=== PATIENT | female | born 1985 | race Caucasian/White ===

== ENCOUNTER 2017-02-06 17:23 | Emergency (ER) | payer MEDICAID ==
--- NOTE | 2017-02-06 18:08 | EDM.PDOC ---
<Florina Watts - Last Filed: 02/06/17 18:55> ED HPI GENERAL MEDICAL PROBLEM - General Chief Complaint: Cardiovascular Problem Stated Complaint: HBP/CHEST PAIN Time Seen by Provider: 02/06/17 17:40 - History of Present Illness INITIAL COMMENTS - FREE TEXT/NARRATIVE: This is Dr. Watts dictating an addendum note as a supervising physician on this case. I personally seen and evaluated this patient independently and agree with above. The patient tells me that she has had episodes similar to this were many years and she just attributed to anxiety. [place] gets several a day which has a flushed feeling she might feel like her heart is racing and she gets discomfort. She has never talked to her provider at [facility] about this. She comes in today only because when she went to donate blood they commented that her heart rate was elevated and her blood pressure was elevated and she thought she should be seen. She has a scheduled appointment with her provider on . On my evaluation I agree with the physical as above and she has no clinical findings and she has no thyromegaly. She does drink a lot of caffeinated products but she has not had any caffeine in the last state hours. The patient currently complains of no discrete chest pain just this sensation that she has but since she has arrived here it has abated. Again she says that the symptomatology that she presented with today is no different than any prior episode and there are no new findings and the only reason why she came here was because of the new information she was given by the clinic she went to donate blood. She does have a history of PCO S denies drug use. We'll proceed with the workup as above including EKG CBC CMP troponin d-dimer TSH UA UCG and a chest x-ray as well as hemoglobin A1c. We will follow-up the testing findings and disposition the patient accordingly. The patient is aware that she needs to follow-up with her provider, Dr. Clarke, at [facility] for more care and evaluation if our testing results are negative. Impression: Episodic palpitations chest pain and hypertension chronic - Related Data Allergies Allergy/AdvReac Type Severity Reaction Status Date / Time No Known Allergies Allergy Verified 02/06/17 17:34 Home Meds: Home Meds ClonazePAM [KlonoPIN] 0.5 mg PO DAILY PRN 02/06/17 [History] Omeprazole Magnesium [Prilosec Otc] 20 mg PO DAILY 02/06/17 [History] buPROPion [Wellbutrin] 02/06/17 [History] Course - Vital Signs Last Recorded V/S: Last Vital Signs Temp 36.1 C 02/06/17 20:47 Pulse 115 H 02/06/17 20:47 Resp 20 02/06/17 20:47 BP 140/100 H 02/06/17 20:47 Pulse Ox 97 02/06/17 20:47 - Orders/Labs/Meds Orders: Active Orders 24 hr Category Date Time Status Cardiac Monitoring [RC] . DIRECTED Care 02/06/17 17:39 Active EKG Documentation Completion [RC] STAT Care 02/06/17 17:39 Active Oxygen Therapy, ED [RC] ASDIRECTED Care 02/06/17 17:39 Active Pulse Oximetry [RC] ASDIRECTED Care 02/06/17 17:39 Active Chest 1V Frontal [CR] Stat Exams 02/06/17 18:23 Taken Chest 1V Frontal [CR] Stat Exams 02/06/17 19:50 Taken Labs: Laboratory Tests 02/06/17 02/06/17 02/06/17 Range/Units 18:12 18:12 18:12 WBC 10.36 (4.0-11.0) K/uL RBC 5.57 (4.30-5.90) M/uL Hgb 15.0 (12.0-16.0) g/dL Hct 44.7 (36.0-46.0) % MCV 80.3 (80.0-98.0) fL MCH 26.9 L (27.0-32.0) pg MCHC 33.6 (31.0-37.0) g/dL RDW Std Deviation 44.8 (28.0-62.0) fl RDW Coeff of Nicole 16 H (11.0-15.0) % Plt Count 309 (150-400) K/uL MPV 9.50 (7.40-12.00) fL Add Manual Diff YES Neutrophils % (Manual) 69 (48.0-80.0) % Band Neutrophils % 2 % Lymphocytes % (Manual) 21 (16.0-40.0) % Monocytes % (Manual) 7 (0.0-15.0) % Eosinophils % (Manual) 1 (0.0-7.0) % Nucleated RBC % 0.0 /100WBC Absolute Seg Neuts 7.1 Band Neutrophils # 0.2 Lymphocytes # (Manual) 2.2 Monocytes # (Manual) 0.7 Eosinophils # (Manual) 0.1 Nucleated RBCs # 0 K/uL D-Dimer, Quantitative (0.0-0.52) mg/LFEU Sodium 141 (136-146) mmol/L Potassium 4.1 (3.5-5.1) mmol/L Chloride 106 (98-110) mmol/L Carbon Dioxide 24 (21-31) mmol/L BUN 11 (6.0-23.0) mg/dL Creatinine 0.8 (0.6-1.5) mg/dL Est Cr Clr Drug Dosing 90.84 mL/min Estimated GFR (MDRD) > 60.0 ml/min Glucose 100 (60-110) mg/dL Hemoglobin A1c (0.0-6.0) % Calcium 9.7 (8.8-10.8) mg/dL Total Bilirubin 0.3 (0.1-1.5) mg/dL AST 25 (5-40) IU/L ALT 61 H (8-54) IU/L Alkaline Phosphatase 70 (40-150) Troponin I < 0.10 (0.0-0.29) NG/ML Total Protein 7.8 (6.0-8.0) g/dL Albumin 4.1 (3.5-5.0) g/dL Globulin 3.7 H (2.0-3.5) g/dL Albumin/Globulin Ratio 1.1 L (1.3-2.8) TSH 3rd Generation 3.94 (0.47-5.0) uIU/mL Urine Color Urine Appearance Urine pH (5.0-8.0) Ur Specific [place] (1.001-1.035) Urine Protein (NEGATIVE) mg/dL Urine Glucose (UA) (NEGATIVE) mg/dL Urine Ketones (NEGATIVE) mg/dL Urine Occult Blood (NEGATIVE) Urine Nitrite (NEGATIVE) Urine Bilirubin (NEGATIVE) Urine Urobilinogen (<2.0) EU/dL Ur Leukocyte Esterase (NEGATIVE) Urine RBC (0-2/HPF) Urine WBC (0-5/HPF) Ur Epithelial Cells (NONE-FEW) Urine Bacteria (NEGATIVE) Urine HCG, Qual (NEGATIVE) 02/06/17 02/06/17 02/06/17 Range/Units 18:12 18:12 18:21 WBC (4.0-11.0) K/uL RBC (4.30-5.90) M/uL Hgb (12.0-16.0) g/dL Hct (36.0-46.0) % MCV (80.0-98.0) fL MCH (27.0-32.0) pg MCHC (31.0-37.0) g/dL RDW Std Deviation (28.0-62.0) fl RDW Coeff of Nicole (11.0-15.0) % Plt Count (150-400) K/uL MPV (7.40-12.00) fL Add Manual Diff Neutrophils % (Manual) (48.0-80.0) % Band Neutrophils % % Lymphocytes % (Manual) (16.0-40.0) % Monocytes % (Manual) (0.0-15.0) % Eosinophils % (Manual) (0.0-7.0) % Nucleated RBC % /100WBC Absolute Seg Neuts Band Neutrophils # Lymphocytes # (Manual) Monocytes # (Manual) Eosinophils # (Manual) Nucleated RBCs # K/uL D-Dimer, Quantitative < 0.19 (0.0-0.52) mg/LFEU Sodium (136-146) mmol/L Potassium (3.5-5.1) mmol/L Chloride (98-110) mmol/L Carbon Dioxide (21-31) mmol/L BUN (6.0-23.0) mg/dL Creatinine (0.6-1.5) mg/dL Est Cr Clr Drug Dosing mL/min Estimated GFR (MDRD) ml/min Glucose (60-110) mg/dL Hemoglobin A1c 5.4 (0.0-6.0) % Calcium (8.8-10.8) mg/dL Total Bilirubin (0.1-1.5) mg/dL AST (5-40) IU/L ALT (8-54) IU/L Alkaline Phosphatase (40-150) Troponin I (0.0-0.29) NG/ML Total Protein (6.0-8.0) g/dL Albumin (3.5-5.0) g/dL Globulin (2.0-3.5) g/dL Albumin/Globulin Ratio (1.3-2.8) TSH 3rd Generation (0.47-5.0) uIU/mL Urine Color Urine Appearance Urine pH (5.0-8.0) Ur Specific [place] (1.001-1.035) Urine Protein (NEGATIVE) mg/dL Urine Glucose (UA) (NEGATIVE) mg/dL Urine Ketones (NEGATIVE) mg/dL Urine Occult Blood (NEGATIVE) Urine Nitrite (NEGATIVE) Urine Bilirubin (NEGATIVE) Urine Urobilinogen (<2.0) EU/dL Ur Leukocyte Esterase (NEGATIVE) Urine RBC (0-2/HPF) Urine WBC (0-5/HPF) Ur Epithelial Cells (NONE-FEW) Urine Bacteria (NEGATIVE) Urine HCG, Qual NEGATIVE (NEGATIVE) 02/06/17 Range/Units 18:21 WBC (4.0-11.0) K/uL RBC (4.30-5.90) M/uL Hgb (12.0-16.0) g/dL Hct (36.0-46.0) % MCV (80.0-98.0) fL MCH (27.0-32.0) pg MCHC (31.0-37.0) g/dL RDW Std Deviation (28.0-62.0) fl RDW Coeff of Nicole (11.0-15.0) % Plt Count (150-400) K/uL MPV (7.40-12.00) fL Add Manual Diff Neutrophils % (Manual) (48.0-80.0) % Band Neutrophils % % Lymphocytes % (Manual) (16.0-40.0) % Monocytes % (Manual) (0.0-15.0) % Eosinophils % (Manual) (0.0-7.0) % Nucleated RBC % /100WBC Absolute Seg Neuts Band Neutrophils # Lymphocytes # (Manual) Monocytes # (Manual) Eosinophils # (Manual) Nucleated RBCs # K/uL D-Dimer, Quantitative (0.0-0.52) mg/LFEU Sodium (136-146) mmol/L Potassium (3.5-5.1) mmol/L Chloride (98-110) mmol/L Carbon Dioxide (21-31) mmol/L BUN (6.0-23.0) mg/dL Creatinine (0.6-1.5) mg/dL Est Cr Clr Drug Dosing mL/min Estimated GFR (MDRD) ml/min Glucose (60-110) mg/dL Hemoglobin A1c (0.0-6.0) % Calcium (8.8-10.8) mg/dL Total Bilirubin (0.1-1.5) mg/dL AST (5-40) IU/L ALT (8-54) IU/L Alkaline Phosphatase (40-150) Troponin I (0.0-0.29) NG/ML Total Protein (6.0-8.0) g/dL Albumin (3.5-5.0) g/dL Globulin (2.0-3.5) g/dL Albumin/Globulin Ratio (1.3-2.8) TSH 3rd Generation (0.47-5.0) uIU/mL Urine Color YELLOW Urine Appearance CLEAR Urine pH 6.0 (5.0-8.0) Ur Specific [place] >= 1.030 (1.001-1.035) Urine Protein NEGATIVE (NEGATIVE) mg/dL Urine Glucose (UA) NEGATIVE (NEGATIVE) mg/dL Urine Ketones NEGATIVE (NEGATIVE) mg/dL Urine Occult Blood NEGATIVE (NEGATIVE) Urine Nitrite NEGATIVE (NEGATIVE) Urine Bilirubin NEGATIVE (NEGATIVE) Urine Urobilinogen 0.2 (<2.0) EU/dL Ur Leukocyte Esterase NEGATIVE (NEGATIVE) Urine RBC 0-1 (0-2/HPF) Urine WBC 0-1 (0-5/HPF) Ur Epithelial Cells FEW (NONE-FEW) Urine Bacteria RARE (NEGATIVE) Urine HCG, Qual (NEGATIVE) Departure - Departure Disposition: Home, Self-Care 01 Clinical Impression: Tachycardia, Anxiety, Vasomotor flushing, Hypertension Referrals: Frankie Clarke MD [Primary Care Provider] - Forms: ED Department Discharge Additional Instructions: The following information is given to patients seen in the emergency department who are being discharged to home. This information is to outline your options for follow-up care. We provide all patients seen in our emergency department with a follow-up referral. The need for follow-up, as well as the timing and circumstances, are variable depending upon the specifics of your emergency department visit. If you don't have a primary care physician on staff, we will provide you with a referral. We always advise you to contact your personal physician following an emergency department visit to inform them of the circumstance of the visit and for follow-up with them and/or the need for any referrals to a consulting specialist. The emergency department will also refer you to a specialist when appropriate. This referral assures that you have the opportunity for follow-up care with a specialist. All of these measure are taken in an effort to provide you with optimal care, which includes your follow-up. Under all circumstances we always encourage you to contact your private physician who remains a resource for coordinating your care. When calling for follow-up care, please make the office aware that this follow-up is from your recent emergency room visit. If for any reason you are refused follow-up, please contact the [facility] Emergency Department at and asked to speak to the emergency department charge nurse. Diagnosis: Episodic tachycardia flushing and hypertension chronic in nature no acute findings seen on laboratory and imaging investigations. Impressions/follow-up: Her presenting symptoms of flushing, high blood pressure , fluctuating heart rate seemed to be chronic in nature which need to be evaluated with your primary care physician. The workup that we did all came back normal. Your EKG did not show any ischemic heart findings, your CBC was within normal limits, troponins were normal, d-dimer was normal, her thyroid- stimulating hormone is normal, urinalysis was normal, urine test was normal, hemoglobin A1c is normal your chest x-ray had no findings. Most likely due to the chronic nature of your findings this is a mixture of possibly anxiety related issues along with possible hormonal issues that need to be worked up outpatient with your primary care physician Dr. Clarke on your scheduled appointment this . <Florina Watts - Last Filed: 02/06/17 18:55> ED HPI GENERAL MEDICAL PROBLEM - General Chief Complaint: Cardiovascular Problem Stated Complaint: HBP/CHEST PAIN Time Seen by Provider: 02/06/17 17:40 - History of Present Illness INITIAL COMMENTS - FREE TEXT/NARRATIVE: This is Dr. Watts dictating an addendum note as a supervising physician on this case. I personally seen and evaluated this patient independently and agree with above. The patient tells me that she has had episodes similar to this were many years and she just attributed to anxiety. [place] gets several a day which has a flushed feeling she might feel like her heart is racing and she gets discomfort. She has never talked to her provider at [facility] about this. She comes in today only because when she went to donate blood they commented that her heart rate was elevated and her blood pressure was elevated and she thought she should be seen. She has a scheduled appointment with her provider on . On my evaluation I agree with the physical as above and she has no clinical findings and she has no thyromegaly. She does drink a lot of caffeinated products but she has not had any caffeine in the last state hours. The patient currently complains of no discrete chest pain just this sensation that she has but since she has arrived here it has abated. Again she says that the symptomatology that she presented with today is no different than any prior episode and there are no new findings and the only reason why she came here was because of the new information she was given by the clinic she went to donate blood. She does have a history of PCO S denies drug use. We'll proceed with the workup as above including EKG CBC CMP troponin d-dimer TSH UA UCG and a chest x-ray as well as hemoglobin A1c. We will follow-up the testing findings and disposition the patient accordingly. The patient is aware that she needs to follow-up with her provider, Dr. Clarke, at [facility] for more care and evaluation if our testing results are negative. Impression: Episodic palpitations chest pain and hypertension chronic - Related Data Allergies Allergy/AdvReac Type Severity Reaction Status Date / Time No Known Allergies Allergy Verified 02/06/17 17:34 Home Meds: Home Meds ClonazePAM [KlonoPIN] 0.5 mg PO DAILY PRN 02/06/17 [History] Omeprazole Magnesium [Prilosec Otc] 20 mg PO DAILY 02/06/17 [History] buPROPion [Wellbutrin] 02/06/17 [History] Course - Vital Signs Last Recorded V/S: Last Vital Signs Temp 36.2 C 02/06/17 17:31 Pulse 119 H 02/06/17 18:54 Resp 18 02/06/17 18:54 BP 152/92 H 02/06/17 18:54 Pulse Ox 98 02/06/17 18:54 - Orders/Labs/Meds Orders: Active Orders 24 hr Category Date Time Status Cardiac Monitoring [RC] . DIRECTED Care 02/06/17 17:39 Active EKG Documentation Completion [RC] STAT Care 02/06/17 17:39 Active Oxygen Therapy, ED [RC] ASDIRECTED Care 02/06/17 17:39 Active Pulse Oximetry [RC] ASDIRECTED Care 02/06/17 17:39 Active Chest 1V Frontal [CR] Stat Exams 02/06/17 18:23 Ordered Labs: Laboratory Tests 02/06/17 02/06/17 02/06/17 Range/Units 18:12 18:12 18:12 WBC 10.36 (4.0-11.0) K/uL RBC 5.57 (4.30-5.90) M/uL Hgb 15.0 (12.0-16.0) g/dL Hct 44.7 (36.0-46.0) % MCV 80.3 (80.0-98.0) fL MCH 26.9 L (27.0-32.0) pg MCHC 33.6 (31.0-37.0) g/dL RDW Std Deviation 44.8 (28.0-62.0) fl RDW Coeff of Nicole 16 H (11.0-15.0) % Plt Count 309 (150-400) K/uL MPV 9.50 (7.40-12.00) fL Add Manual Diff YES Neutrophils % (Manual) 69 (48.0-80.0) % Band Neutrophils % 2 % Lymphocytes % (Manual) 21 (16.0-40.0) % Monocytes % (Manual) 7 (0.0-15.0) % Eosinophils % (Manual) 1 (0.0-7.0) % Nucleated RBC % 0.0 /100WBC Absolute Seg Neuts 7.1 Band Neutrophils # 0.2 Lymphocytes # (Manual) 2.2 Monocytes # (Manual) 0.7 Eosinophils # (Manual) 0.1 Nucleated RBCs # 0 K/uL D-Dimer, Quantitative (0.0-0.52) mg/LFEU Sodium 141 (136-146) mmol/L Potassium 4.1 (3.5-5.1) mmol/L Chloride 106 (98-110) mmol/L Carbon Dioxide 24 (21-31) mmol/L BUN 11 (6.0-23.0) mg/dL Creatinine 0.8 (0.6-1.5) mg/dL Est Cr Clr Drug Dosing 90.84 mL/min Estimated GFR (MDRD) > 60.0 ml/min Glucose 100 (60-110) mg/dL Hemoglobin A1c (0.0-6.0) % Calcium 9.7 (8.8-10.8) mg/dL Total Bilirubin 0.3 (0.1-1.5) mg/dL AST 25 (5-40) IU/L ALT 61 H (8-54) IU/L Alkaline Phosphatase 70 (40-150) Troponin I < 0.10 (0.0-0.29) NG/ML Total Protein 7.8 (6.0-8.0) g/dL Albumin 4.1 (3.5-5.0) g/dL Globulin 3.7 H (2.0-3.5) g/dL Albumin/Globulin Ratio 1.1 L (1.3-2.8) TSH 3rd Generation 3.94 (0.47-5.0) uIU/mL Urine Color Urine Appearance Urine pH (5.0-8.0) Ur Specific [place] (1.001-1.035) Urine Protein (NEGATIVE) mg/dL Urine Glucose (UA) (NEGATIVE) mg/dL Urine Ketones (NEGATIVE) mg/dL Urine Occult Blood (NEGATIVE) Urine Nitrite (NEGATIVE) Urine Bilirubin (NEGATIVE) Urine Urobilinogen (<2.0) EU/dL Ur Leukocyte Esterase (NEGATIVE) Urine RBC (0-2/HPF) Urine WBC (0-5/HPF) Ur Epithelial Cells (NONE-FEW) Urine Bacteria (NEGATIVE) Urine HCG, Qual (NEGATIVE) 02/06/17 02/06/17 02/06/17 Range/Units 18:12 18:12 18:21 WBC (4.0-11.0) K/uL RBC (4.30-5.90) M/uL Hgb (12.0-16.0) g/dL Hct (36.0-46.0) % MCV (80.0-98.0) fL MCH (27.0-32.0) pg MCHC (31.0-37.0) g/dL RDW Std Deviation (28.0-62.0) fl RDW Coeff of Nicole (11.0-15.0) % Plt Count (150-400) K/uL MPV (7.40-12.00) fL Add Manual Diff Neutrophils % (Manual) (48.0-80.0) % Band Neutrophils % % Lymphocytes % (Manual) (16.0-40.0) % Monocytes % (Manual) (0.0-15.0) % Eosinophils % (Manual) (0.0-7.0) % Nucleated RBC % /100WBC Absolute Seg Neuts Band Neutrophils # Lymphocytes # (Manual) Monocytes # (Manual) Eosinophils # (Manual) Nucleated RBCs # K/uL D-Dimer, Quantitative < 0.19 (0.0-0.52) mg/LFEU Sodium (136-146) mmol/L Potassium (3.5-5.1) mmol/L Chloride (98-110) mmol/L Carbon Dioxide (21-31) mmol/L BUN (6.0-23.0) mg/dL Creatinine (0.6-1.5) mg/dL Est Cr Clr Drug Dosing mL/min Estimated GFR (MDRD) ml/min Glucose (60-110) mg/dL Hemoglobin A1c 5.4 (0.0-6.0) % Calcium (8.8-10.8) mg/dL Total Bilirubin (0.1-1.5) mg/dL AST (5-40) IU/L ALT (8-54) IU/L Alkaline Phosphatase (40-150) Troponin I (0.0-0.29) NG/ML Total Protein (6.0-8.0) g/dL Albumin (3.5-5.0) g/dL Globulin (2.0-3.5) g/dL Albumin/Globulin Ratio (1.3-2.8) TSH 3rd Generation (0.47-5.0) uIU/mL Urine Color Urine Appearance Urine pH (5.0-8.0) Ur Specific [place] (1.001-1.035) Urine Protein (NEGATIVE) mg/dL Urine Glucose (UA) (NEGATIVE) mg/dL Urine Ketones (NEGATIVE) mg/dL Urine Occult Blood (NEGATIVE) Urine Nitrite (NEGATIVE) Urine Bilirubin (NEGATIVE) Urine Urobilinogen (<2.0) EU/dL Ur Leukocyte Esterase (NEGATIVE) Urine RBC (0-2/HPF) Urine WBC (0-5/HPF) Ur Epithelial Cells (NONE-FEW) Urine Bacteria (NEGATIVE) Urine HCG, Qual NEGATIVE (NEGATIVE) 02/06/17 Range/Units 18:21 WBC (4.0-11.0) K/uL RBC (4.30-5.90) M/uL Hgb (12.0-16.0) g/dL Hct (36.0-46.0) % MCV (80.0-98.0) fL MCH (27.0-32.0) pg MCHC (31.0-37.0) g/dL RDW Std Deviation (28.0-62.0) fl RDW Coeff of Nicole (11.0-15.0) % Plt Count (150-400) K/uL MPV (7.40-12.00) fL Add Manual Diff Neutrophils % (Manual) (48.0-80.0) % Band Neutrophils % % Lymphocytes % (Manual) (16.0-40.0) % Monocytes % (Manual) (0.0-15.0) % Eosinophils % (Manual) (0.0-7.0) % Nucleated RBC % /100WBC Absolute Seg Neuts Band Neutrophils # Lymphocytes # (Manual) Monocytes # (Manual) Eosinophils # (Manual) Nucleated RBCs # K/uL D-Dimer, Quantitative (0.0-0.52) mg/LFEU Sodium (136-146) mmol/L Potassium (3.5-5.1) mmol/L Chloride (98-110) mmol/L Carbon Dioxide (21-31) mmol/L BUN (6.0-23.0) mg/dL Creatinine (0.6-1.5) mg/dL Est Cr Clr Drug Dosing mL/min Estimated GFR (MDRD) ml/min Glucose (60-110) mg/dL Hemoglobin A1c (0.0-6.0) % Calcium (8.8-10.8) mg/dL Total Bilirubin (0.1-1.5) mg/dL AST (5-40) IU/L ALT (8-54) IU/L Alkaline Phosphatase (40-150) Troponin I (0.0-0.29) NG/ML Total Protein (6.0-8.0) g/dL Albumin (3.5-5.0) g/dL Globulin (2.0-3.5) g/dL Albumin/Globulin Ratio (1.3-2.8) TSH 3rd Generation (0.47-5.0) uIU/mL Urine Color YELLOW Urine Appearance CLEAR Urine pH 6.0 (5.0-8.0) Ur Specific [place] >= 1.030 (1.001-1.035) Urine Protein NEGATIVE (NEGATIVE) mg/dL Urine Glucose (UA) NEGATIVE (NEGATIVE) mg/dL Urine Ketones NEGATIVE (NEGATIVE) mg/dL Urine Occult Blood NEGATIVE (NEGATIVE) Urine Nitrite NEGATIVE (NEGATIVE) Urine Bilirubin NEGATIVE (NEGATIVE) Urine Urobilinogen 0.2 (<2.0) EU/dL Ur Leukocyte Esterase NEGATIVE (NEGATIVE) Urine RBC 0-1 (0-2/HPF) Urine WBC 0-1 (0-5/HPF) Ur Epithelial Cells FEW (NONE-FEW) Urine Bacteria RARE (NEGATIVE) Urine HCG, Qual (NEGATIVE) Departure - Departure Disposition: Home, Self-Care 01 Clinical Impression: Tachycardia, Anxiety, Vasomotor flushing Referrals: Frankie Clarke MD [Primary Care Provider] - Forms: ED Department Discharge Additional Instructions: The following information is given to patients seen in the emergency department who are being discharged to home. This information is to outline your options for follow-up care. We provide all patients seen in our emergency department with a follow-up referral. The need for follow-up, as well as the timing and circumstances, are variable depending upon the specifics of your emergency department visit. If you don't have a primary care physician on staff, we will provide you with a referral. We always advise you to contact your personal physician following an emergency department visit to inform them of the circumstance of the visit and for follow-up with them and/or the need for any referrals to a consulting specialist. The emergency department will also refer you to a specialist when appropriate. This referral assures that you have the opportunity for follow-up care with a specialist. All of these measure are taken in an effort to provide you with optimal care, which includes your follow-up. Under all circumstances we always encourage you to contact your private physician who remains a resource for coordinating your care. When calling for follow-up care, please make the office aware that this follow-up is from your recent emergency room visit. If for any reason you are refused follow-up, please contact the [facility] Emergency Department at and asked to speak to the emergency department charge nurse. Diagnosis: Episodic flushing, palpitations, hypertension Impression/follow-up: <Romel Trotter Z - Last Filed: 02/06/17 19:40> ED HPI GENERAL MEDICAL PROBLEM - General Source of Information: Reports: Patient History Limitations: Reports: No Limitations - History of Present Illness INITIAL COMMENTS - FREE TEXT/NARRATIVE: HISTORY AND PHYSICAL: History of present illness: 32-year-old obese female presenting with attention, tachycardia, chest tightness. Patient states that she has a significant past medical history anxiety, OCD, PCOS and endometriosis. She states that this morning she walked over to a blood clinic to give blood, while at that clinic they noticed an elevation of her blood pressure of 80 systolic above 180 and diastolic above 110 as well as tachycardia patient was told to immediately see her primary care physician for evaluation. Patient did not have any blood taken due to her elevated blood pressure. Patient states that she came home rechecked her blood pressure again noticed that it was elevated as well as having an elevated heart rate. Also stated symptoms the patient states that she has is chest tightness on the anterior surface with no radiation or pain. Patient also states that she is having a dry mouth, palpitations, flushing. Patient states that these issues of heart palpitations, flushing, tachycardia have been an ongoing issue for a number of years. Patient did have a "zinger" for breakfast which is a caffeinated drink containing red bull. Patient does have cardiovascular risk factors stating that her mom had a history of [place] in her 40s to 50s. She denies any history of diabetes, denies any diagnosed cardiovascular etiology. Patient denies taking any oral contraceptive medication. Review of systems: As per history of present illness and below otherwise all systems reviewed and negative. Past medical history: As per history of present illness and as reviewed below otherwise noncontributory. Surgical history: As per history of present illness and as reviewed below otherwise noncontributory. Social history: No reported history of drug or alcohol abuse. Family history: As per history of present illness and as reviewed below otherwise noncontributory. Physical exam: HEENT: Atraumatic, normocephalic, pupils reactive, negative for conjunctival pallor or scleral icterus, mucous membranes moist, throat clear, neck supple, nontender, trachea midline. Lungs: Clear to auscultation, breath sounds equal bilaterally, chest nontender. Heart: S1S2, regular, negative for clicks, rubs, or JVD. Abdomen: Soft, nondistended, nontender. Negative for masses or hepatosplenomegaly. Negative for costovertebral tenderness. Pelvis: Stable nontender. Genitourinary: Deferred. Rectal: Deferred. Extremities: Atraumatic, negative for cords or calf pain. Neurovascular unremarkable. Neuro: Awake, alert, oriented. Cranial nerves II through XII unremarkable. Cerebellum unremarkable. Motor and sensory unremarkable throughout. Exam nonfocal. Diagnostics: EKG: Within normal limits EKG: Documented heart rate of 106 reviewed and interpreted by Dr. Watts Troponins: Thin normal limits, less than 0.01 CBC: Within normal limits CMP: Within normal limits , minimally elevated ALT of 64 TSH: Within normal limits Hemoglobin A1c: 5.4 UA: Within normal limits test: Not Chest x-ray: Therapeutics: ER re-assessment: Patient's vital signs are stable, her heart rate has been alternating with a documented EKG heart rate of 106 without any symptoms. Impression: 32-year-old obese female presenting with episodic flushing, hypertension, racing heart rate of which have been long-term ongoing symptoms most likely etiology is anxiety induced symptomatology. Plan: Patient's overall general workup has been within normal limits, her vital signs have been rechecked and are stable, her heart rate has been fluctuating without any acute adverse symptoms with a documented heart rate on EKG of 106. Based upon the history and physical examination and diagnostic evaluations patient will need to have a close outpatient follow-up with her primary care physician to find/diagnosed the underlying etiology of the patient's long-term symptoms. Acutely there are no concerning findings that would require any urgent ER intervention. Definitive disposition and diagnosis as appropriate pending reevaluation and review of above. 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 APPEALS AUDITOR History: Reports: Neurological History: Reports: Migraines Psychiatric History: Reports: Anxiety, Depression Dermatologic History: Reports: Eczema - Past Surgical History HEENT Surgical History: Reports: Adenoidectomy, Tonsillectomy GI Surgical History: Reports: Cholecystectomy Female Surgical History: Reports: Section Social & Family History - Family History Family Medical History: Noncontributory - Tobacco Use Smoking Status *Q: Never Smoker Second Hand Smoke Exposure: No - Caffeine Use Caffeine Use: Reports: Coffee, Energy Drinks - Alcohol Use Days Per Week of Alcohol Use: 7 Number of Drinks Per Day: 1 Total Drinks Per Week: 7 - Recreational Drug Use Recreational Drug Use: No ED ROS GENERAL - Review of Systems Review Of Systems: ROS reveals no pertinent complaints other than HPI. ED EXAM, GENERAL - Physical Exam Exam: See Below (As refer to history of presenting illness) Course - Orders/Labs/Meds Labs: Laboratory Tests 02/06/17 02/06/17 02/06/17 Range/Units 18:12 18:12 18:12 WBC 10.36 (4.0-11.0) K/uL RBC 5.57 (4.30-5.90) M/uL Hgb 15.0 (12.0-16.0) g/dL Hct 44.7 (36.0-46.0) % MCV 80.3 (80.0-98.0) fL MCH 26.9 L (27.0-32.0) pg MCHC 33.6 (31.0-37.0) g/dL RDW Std Deviation 44.8 (28.0-62.0) fl RDW Coeff of Nicole 16 H (11.0-15.0) % Plt Count 309 (150-400) K/uL MPV 9.50 (7.40-12.00) fL Add Manual Diff YES Neutrophils % (Manual) 69 (48.0-80.0) % Band Neutrophils % 2 % Lymphocytes % (Manual) 21 (16.0-40.0) % Monocytes % (Manual) 7 (0.0-15.0) % Eosinophils % (Manual) 1 (0.0-7.0) % Nucleated RBC % 0.0 /100WBC Absolute Seg Neuts 7.1 Band Neutrophils # 0.2 Lymphocytes # (Manual) 2.2 Monocytes # (Manual) 0.7 Eosinophils # (Manual) 0.1 Nucleated RBCs # 0 K/uL D-Dimer, Quantitative (0.0-0.52) mg/LFEU Sodium 141 (136-146) mmol/L Potassium 4.1 (3.5-5.1) mmol/L Chloride 106 (98-110) mmol/L Carbon Dioxide 24 (21-31) mmol/L BUN 11 (6.0-23.0) mg/dL Creatinine 0.8 (0.6-1.5) mg/dL Est Cr Clr Drug Dosing 90.84 mL/min Estimated GFR (MDRD) > 60.0 ml/min Glucose 100 (60-110) mg/dL Hemoglobin A1c (0.0-6.0) % Calcium 9.7 (8.8-10.8) mg/dL Total Bilirubin 0.3 (0.1-1.5) mg/dL AST 25 (5-40) IU/L ALT 61 H (8-54) IU/L Alkaline Phosphatase 70 (40-150) Troponin I < 0.10 (0.0-0.29) NG/ML Total Protein 7.8 (6.0-8.0) g/dL Albumin 4.1 (3.5-5.0) g/dL Globulin 3.7 H (2.0-3.5) g/dL Albumin/Globulin Ratio 1.1 L (1.3-2.8) TSH 3rd Generation 3.94 (0.47-5.0) uIU/mL Urine Color Urine Appearance Urine pH (5.0-8.0) Ur Specific [place] (1.001-1.035) Urine Protein (NEGATIVE) mg/dL Urine Glucose (UA) (NEGATIVE) mg/dL Urine Ketones (NEGATIVE) mg/dL Urine Occult Blood (NEGATIVE) Urine Nitrite (NEGATIVE) Urine Bilirubin (NEGATIVE) Urine Urobilinogen (<2.0) EU/dL Ur Leukocyte Esterase (NEGATIVE) Urine RBC (0-2/HPF) Urine WBC (0-5/HPF) Ur Epithelial Cells (NONE-FEW) Urine Bacteria (NEGATIVE) Urine HCG, Qual (NEGATIVE) 02/06/17 02/06/17 02/06/17 Range/Units 18:12 18:12 18:21 WBC (4.0-11.0) K/uL RBC (4.30-5.90) M/uL Hgb (12.0-16.0) g/dL Hct (36.0-46.0) % MCV (80.0-98.0) fL MCH (27.0-32.0) pg MCHC (31.0-37.0) g/dL RDW Std Deviation (28.0-62.0) fl RDW Coeff of Nicole (11.0-15.0) % Plt Count (150-400) K/uL MPV (7.40-12.00) fL Add Manual Diff Neutrophils % (Manual) (48.0-80.0) % Band Neutrophils % % Lymphocytes % (Manual) (16.0-40.0) % Monocytes % (Manual) (0.0-15.0) % Eosinophils % (Manual) (0.0-7.0) % Nucleated RBC % /100WBC Absolute Seg Neuts Band Neutrophils # Lymphocytes # (Manual) Monocytes # (Manual) Eosinophils # (Manual) Nucleated RBCs # K/uL D-Dimer, Quantitative < 0.19 (0.0-0.52) mg/LFEU Sodium (136-146) mmol/L Potassium (3.5-5.1) mmol/L Chloride (98-110) mmol/L Carbon Dioxide (21-31) mmol/L BUN (6.0-23.0) mg/dL Creatinine (0.6-1.5) mg/dL Est Cr Clr Drug Dosing mL/min Estimated GFR (MDRD) ml/min Glucose (60-110) mg/dL Hemoglobin A1c 5.4 (0.0-6.0) % Calcium (8.8-10.8) mg/dL Total Bilirubin (0.1-1.5) mg/dL AST (5-40) IU/L ALT (8-54) IU/L Alkaline Phosphatase (40-150) Troponin I (0.0-0.29) NG/ML Total Protein (6.0-8.0) g/dL Albumin (3.5-5.0) g/dL Globulin (2.0-3.5) g/dL Albumin/Globulin Ratio (1.3-2.8) TSH 3rd Generation (0.47-5.0) uIU/mL Urine Color Urine Appearance Urine pH (5.0-8.0) Ur Specific [place] (1.001-1.035) Urine Protein (NEGATIVE) mg/dL Urine Glucose (UA) (NEGATIVE) mg/dL Urine Ketones (NEGATIVE) mg/dL Urine Occult Blood (NEGATIVE) Urine Nitrite (NEGATIVE) Urine Bilirubin (NEGATIVE) Urine Urobilinogen (<2.0) EU/dL Ur Leukocyte Esterase (NEGATIVE) Urine RBC (0-2/HPF) Urine WBC (0-5/HPF) Ur Epithelial Cells (NONE-FEW) Urine Bacteria (NEGATIVE) Urine HCG, Qual NEGATIVE (NEGATIVE) 02/06/17 Range/Units 18:21 WBC (4.0-11.0) K/uL RBC (4.30-5.90) M/uL Hgb (12.0-16.0) g/dL Hct (36.0-46.0) % MCV (80.0-98.0) fL MCH (27.0-32.0) pg MCHC (31.0-37.0) g/dL RDW Std Deviation (28.0-62.0) fl RDW Coeff of Nicole (11.0-15.0) % Plt Count (150-400) K/uL MPV (7.40-12.00) fL Add Manual Diff Neutrophils % (Manual) (48.0-80.0) % Band Neutrophils % % Lymphocytes % (Manual) (16.0-40.0) % Monocytes % (Manual) (0.0-15.0) % Eosinophils % (Manual) (0.0-7.0) % Nucleated RBC % /100WBC Absolute Seg Neuts Band Neutrophils # Lymphocytes # (Manual) Monocytes # (Manual) Eosinophils # (Manual) Nucleated RBCs # K/uL D-Dimer, Quantitative (0.0-0.52) mg/LFEU Sodium (136-146) mmol/L Potassium (3.5-5.1) mmol/L Chloride (98-110) mmol/L Carbon Dioxide (21-31) mmol/L BUN (6.0-23.0) mg/dL Creatinine (0.6-1.5) mg/dL Est Cr Clr Drug Dosing mL/min Estimated GFR (MDRD) ml/min Glucose (60-110) mg/dL Hemoglobin A1c (0.0-6.0) % Calcium (8.8-10.8) mg/dL Total Bilirubin (0.1-1.5) mg/dL AST (5-40) IU/L ALT (8-54) IU/L Alkaline Phosphatase (40-150) Troponin I (0.0-0.29) NG/ML Total Protein (6.0-8.0) g/dL Albumin (3.5-5.0) g/dL Globulin (2.0-3.5) g/dL Albumin/Globulin Ratio (1.3-2.8) TSH 3rd Generation (0.47-5.0) uIU/mL Urine Color YELLOW Urine Appearance CLEAR Urine pH 6.0 (5.0-8.0) Ur Specific [place] >= 1.030 (1.001-1.035) Urine Protein NEGATIVE (NEGATIVE) mg/dL Urine Glucose (UA) NEGATIVE (NEGATIVE) mg/dL Urine Ketones NEGATIVE (NEGATIVE) mg/dL Urine Occult Blood NEGATIVE (NEGATIVE) Urine Nitrite NEGATIVE (NEGATIVE) Urine Bilirubin NEGATIVE (NEGATIVE) Urine Urobilinogen 0.2 (<2.0) EU/dL Ur Leukocyte Esterase NEGATIVE (NEGATIVE) Urine RBC 0-1 (0-2/HPF) Urine WBC 0-1 (0-5/HPF) Ur Epithelial Cells FEW (NONE-FEW) Urine Bacteria RARE (NEGATIVE) Urine HCG, Qual (NEGATIVE) Departure - Departure Condition: Good The following information is given to patients seen in the emergency department who are being discharged to home. This information is to outline your options for follow-up care. We provide all patients seen in our emergency department with a follow-up referral. The need for follow-up, as well as the timing and circumstances, are variable depending upon the specifics of your emergency department visit. If you don't have a primary care physician on staff, we will provide you with a referral. We always advise you to contact your personal physician following an emergency department visit to inform them of the circumstance of the visit and for follow-up with them and/or the need for any referrals to a consulting specialist. The emergency department will also refer you to a specialist when appropriate. This referral assures that you have the opportunity for follow-up care with a specialist. All of these measure are taken in an effort to provide you with optimal care, which includes your follow-up. Under all circumstances we always encourage you to contact your private physician who remains a resource for coordinating your care. When calling for follow-up care, please make the office aware that this follow-up is from your recent emergency room visit. If for any reason you are refused follow-up, please contact the [facility] Emergency Department at and asked to speak to the emergency department charge nurse. Diagnosis: Episodic flushing, palpitations, hypertension Impression/follow-up: - My Orders Last 24 Hours: My Active Orders 02/06/17 19:50 Chest 1V Frontal [CR] Stat - Assessment/Plan Last 24 Hours: My Active Orders 02/06/17 19:50 Chest 1V Frontal [CR] Stat <Romel Trotter Z - Last Filed: 02/06/17 20:54> ED HPI GENERAL MEDICAL PROBLEM - General Source of Information: Reports: Patient History Limitations: Reports: No Limitations - History of Present Illness INITIAL COMMENTS - FREE TEXT/NARRATIVE: HISTORY AND PHYSICAL: History of present illness: 32-year-old obese female presenting with attention, tachycardia, chest tightness. Patient states that she has a significant past medical history anxiety, OCD, PCOS and endometriosis. She states that this morning she walked over to a blood clinic to give blood, while at that clinic they noticed an elevation of her blood pressure of 80 systolic above 180 and diastolic above 110 as well as tachycardia patient was told to immediately see her primary care physician for evaluation. Patient did not have any blood taken due to her elevated blood pressure. Patient states that she came home rechecked her blood pressure again noticed that it was elevated as well as having an elevated heart rate. Also stated symptoms the patient states that she has is chest tightness on the anterior surface with no radiation or pain. Patient also states that she is having a dry mouth, palpitations, flushing. Patient states that these issues of heart palpitations, flushing, tachycardia have been an ongoing issue for a number of years. Patient did have a "zinger" for breakfast which is a caffeinated drink containing red bull. Patient does have cardiovascular risk factors stating that her mom had a history of [place] in her 40s to 50s. She denies any history of diabetes, denies any diagnosed cardiovascular etiology. Patient denies taking any oral contraceptive medication. Review of systems: As per history of present illness and below otherwise all systems reviewed and negative. Past medical history: As per history of present illness and as reviewed below otherwise noncontributory. Surgical history: As per history of present illness and as reviewed below otherwise noncontributory. Social history: No reported history of drug or alcohol abuse. Family history: As per history of present illness and as reviewed below otherwise noncontributory. Physical exam: HEENT: Atraumatic, normocephalic, pupils reactive, negative for conjunctival pallor or scleral icterus, mucous membranes moist, throat clear, neck supple, nontender, trachea midline. Lungs: Clear to auscultation, breath sounds equal bilaterally, chest nontender. Heart: S1S2, regular, negative for clicks, rubs, or JVD. Abdomen: Soft, nondistended, nontender. Negative for masses or hepatosplenomegaly. Negative for costovertebral tenderness. Pelvis: Stable nontender. Genitourinary: Deferred. Rectal: Deferred. Extremities: Atraumatic, negative for cords or calf pain. Neurovascular unremarkable. Neuro: Awake, alert, oriented. Cranial nerves II through XII unremarkable. Cerebellum unremarkable. Motor and sensory unremarkable throughout. Exam nonfocal. Diagnostics: EKG: Within normal limits EKG: Documented heart rate of 106 reviewed and interpreted by Dr. Watts Troponins: Thin normal limits, less than 0.01 CBC: Within normal limits CMP: Within normal limits , minimally elevated ALT of 61 TSH: Within normal limits Hemoglobin A1c: 5.4 UA: Within normal limits test: Not Chest x-ray: AP showed poor penetration, so a PA was ordered which was within normal limits Therapeutics: ER re-assessment: Patient's vital signs are stable, her heart rate has been alternating with a documented EKG heart rate of 106 without any symptoms. Impression: 32-year-old obese female presenting with episodic flushing, hypertension, racing heart rate of which have been long-term ongoing symptoms most likely etiology is anxiety induced symptomatology. Plan: Patient's overall general workup has been within normal limits, her vital signs have been rechecked and are stable, her heart rate has been fluctuating without any acute adverse symptoms with a documented heart rate on EKG of 106. Based upon the history and physical examination and diagnostic evaluations patient will need to have a close outpatient follow-up with her primary care physician to find/diagnosed the underlying etiology of the patient's long-term symptoms. Acutely there are no concerning findings that would require any urgent ER intervention. Definitive disposition and diagnosis as appropriate pending reevaluation and review of above. 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 APPEALS AUDITOR History: Reports: Neurological History: Reports: Migraines Psychiatric History: Reports: Anxiety, Depression Dermatologic History: Reports: Eczema - Past Surgical History HEENT Surgical History: Reports: Adenoidectomy, Tonsillectomy GI Surgical History: Reports: Cholecystectomy Female Surgical History: Reports: Section Social & Family History - Family History Family Medical History: Noncontributory - Tobacco Use Smoking Status *Q: Never Smoker Second Hand Smoke Exposure: No - Caffeine Use Caffeine Use: Reports: Coffee, Energy Drinks - Alcohol Use Days Per Week of Alcohol Use: 7 Number of Drinks Per Day: 1 Total Drinks Per Week: 7 - Recreational Drug Use Recreational Drug Use: No ED ROS GENERAL - Review of Systems Review Of Systems: ROS reveals no pertinent complaints other than HPI. ED EXAM, GENERAL - Physical Exam Exam: See Below (As refer to history of presenting illness) Course - Orders/Labs/Meds Labs: Laboratory Tests 02/06/17 02/06/17 02/06/17 Range/Units 18:12 18:12 18:12 WBC 10.36 (4.0-11.0) K/uL RBC 5.57 (4.30-5.90) M/uL Hgb 15.0 (12.0-16.0) g/dL Hct 44.7 (36.0-46.0) % MCV 80.3 (80.0-98.0) fL MCH 26.9 L (27.0-32.0) pg MCHC 33.6 (31.0-37.0) g/dL RDW Std Deviation 44.8 (28.0-62.0) fl RDW Coeff of Nicole 16 H (11.0-15.0) % Plt Count 309 (150-400) K/uL MPV 9.50 (7.40-12.00) fL Add Manual Diff YES Neutrophils % (Manual) 69 (48.0-80.0) % Band Neutrophils % 2 % Lymphocytes % (Manual) 21 (16.0-40.0) % Monocytes % (Manual) 7 (0.0-15.0) % Eosinophils % (Manual) 1 (0.0-7.0) % Nucleated RBC % 0.0 /100WBC Absolute Seg Neuts 7.1 Band Neutrophils # 0.2 Lymphocytes # (Manual) 2.2 Monocytes # (Manual) 0.7 Eosinophils # (Manual) 0.1 Nucleated RBCs # 0 K/uL D-Dimer, Quantitative (0.0-0.52) mg/LFEU Sodium 141 (136-146) mmol/L Potassium 4.1 (3.5-5.1) mmol/L Chloride 106 (98-110) mmol/L Carbon Dioxide 24 (21-31) mmol/L BUN 11 (6.0-23.0) mg/dL Creatinine 0.8 (0.6-1.5) mg/dL Est Cr Clr Drug Dosing 90.84 mL/min Estimated GFR (MDRD) > 60.0 ml/min Glucose 100 (60-110) mg/dL Hemoglobin A1c (0.0-6.0) % Calcium 9.7 (8.8-10.8) mg/dL Total Bilirubin 0.3 (0.1-1.5) mg/dL AST 25 (5-40) IU/L ALT 61 H (8-54) IU/L Alkaline Phosphatase 70 (40-150) Troponin I < 0.10 (0.0-0.29) NG/ML Total Protein 7.8 (6.0-8.0) g/dL Albumin 4.1 (3.5-5.0) g/dL Globulin 3.7 H (2.0-3.5) g/dL Albumin/Globulin Ratio 1.1 L (1.3-2.8) TSH 3rd Generation 3.94 (0.47-5.0) uIU/mL Urine Color Urine Appearance Urine pH (5.0-8.0) Ur Specific [place] (1.001-1.035) Urine Protein (NEGATIVE) mg/dL Urine Glucose (UA) (NEGATIVE) mg/dL Urine Ketones (NEGATIVE) mg/dL Urine Occult Blood (NEGATIVE) Urine Nitrite (NEGATIVE) Urine Bilirubin (NEGATIVE) Urine Urobilinogen (<2.0) EU/dL Ur Leukocyte Esterase (NEGATIVE) Urine RBC (0-2/HPF) Urine WBC (0-5/HPF) Ur Epithelial Cells (NONE-FEW) Urine Bacteria (NEGATIVE) Urine HCG, Qual (NEGATIVE) 02/06/17 02/06/17 02/06/17 Range/Units 18:12 18:12 18:21 WBC (4.0-11.0) K/uL RBC (4.30-5.90) M/uL Hgb (12.0-16.0) g/dL Hct (36.0-46.0) % MCV (80.0-98.0) fL MCH (27.0-32.0) pg MCHC (31.0-37.0) g/dL RDW Std Deviation (28.0-62.0) fl RDW Coeff of Nicole (11.0-15.0) % Plt Count (150-400) K/uL MPV (7.40-12.00) fL Add Manual Diff Neutrophils % (Manual) (48.0-80.0) % Band Neutrophils % % Lymphocytes % (Manual) (16.0-40.0) % Monocytes % (Manual) (0.0-15.0) % Eosinophils % (Manual) (0.0-7.0) % Nucleated RBC % /100WBC Absolute Seg Neuts Band Neutrophils # Lymphocytes # (Manual) Monocytes # (Manual) Eosinophils # (Manual) Nucleated RBCs # K/uL D-Dimer, Quantitative < 0.19 (0.0-0.52) mg/LFEU Sodium (136-146) mmol/L Potassium (3.5-5.1) mmol/L Chloride (98-110) mmol/L Carbon Dioxide (21-31) mmol/L BUN (6.0-23.0) mg/dL Creatinine (0.6-1.5) mg/dL Est Cr Clr Drug Dosing mL/min Estimated GFR (MDRD) ml/min Glucose (60-110) mg/dL Hemoglobin A1c 5.4 (0.0-6.0) % Calcium (8.8-10.8) mg/dL Total Bilirubin (0.1-1.5) mg/dL AST (5-40) IU/L ALT (8-54) IU/L Alkaline Phosphatase (40-150) Troponin I (0.0-0.29) NG/ML Total Protein (6.0-8.0) g/dL Albumin (3.5-5.0) g/dL Globulin (2.0-3.5) g/dL Albumin/Globulin Ratio (1.3-2.8) TSH 3rd Generation (0.47-5.0) uIU/mL Urine Color Urine Appearance Urine pH (5.0-8.0) Ur Specific [place] (1.001-1.035) Urine Protein (NEGATIVE) mg/dL Urine Glucose (UA) (NEGATIVE) mg/dL Urine Ketones (NEGATIVE) mg/dL Urine Occult Blood (NEGATIVE) Urine Nitrite (NEGATIVE) Urine Bilirubin (NEGATIVE) Urine Urobilinogen (<2.0) EU/dL Ur Leukocyte Esterase (NEGATIVE) Urine RBC (0-2/HPF) Urine WBC (0-5/HPF) Ur Epithelial Cells (NONE-FEW) Urine Bacteria (NEGATIVE) Urine HCG, Qual NEGATIVE (NEGATIVE) 02/06/17 Range/Units 18:21 WBC (4.0-11.0) K/uL RBC (4.30-5.90) M/uL Hgb (12.0-16.0) g/dL Hct (36.0-46.0) % MCV (80.0-98.0) fL MCH (27.0-32.0) pg MCHC (31.0-37.0) g/dL RDW Std Deviation (28.0-62.0) fl RDW Coeff of Nicole (11.0-15.0) % Plt Count (150-400) K/uL MPV (7.40-12.00) fL Add Manual Diff Neutrophils % (Manual) (48.0-80.0) % Band Neutrophils % % Lymphocytes % (Manual) (16.0-40.0) % Monocytes % (Manual) (0.0-15.0) % Eosinophils % (Manual) (0.0-7.0) % Nucleated RBC % /100WBC Absolute Seg Neuts Band Neutrophils # Lymphocytes # (Manual) Monocytes # (Manual) Eosinophils # (Manual) Nucleated RBCs # K/uL D-Dimer, Quantitative (0.0-0.52) mg/LFEU Sodium (136-146) mmol/L Potassium (3.5-5.1) mmol/L Chloride (98-110) mmol/L Carbon Dioxide (21-31) mmol/L BUN (6.0-23.0) mg/dL Creatinine (0.6-1.5) mg/dL Est Cr Clr Drug Dosing mL/min Estimated GFR (MDRD) ml/min Glucose (60-110) mg/dL Hemoglobin A1c (0.0-6.0) % Calcium (8.8-10.8) mg/dL Total Bilirubin (0.1-1.5) mg/dL AST (5-40) IU/L ALT (8-54) IU/L Alkaline Phosphatase (40-150) Troponin I (0.0-0.29) NG/ML Total Protein (6.0-8.0) g/dL Albumin (3.5-5.0) g/dL Globulin (2.0-3.5) g/dL Albumin/Globulin Ratio (1.3-2.8) TSH 3rd Generation (0.47-5.0) uIU/mL Urine Color YELLOW Urine Appearance CLEAR Urine pH 6.0 (5.0-8.0) Ur Specific [place] >= 1.030 (1.001-1.035) Urine Protein NEGATIVE (NEGATIVE) mg/dL Urine Glucose (UA) NEGATIVE (NEGATIVE) mg/dL Urine Ketones NEGATIVE (NEGATIVE) mg/dL Urine Occult Blood NEGATIVE (NEGATIVE) Urine Nitrite NEGATIVE (NEGATIVE) Urine Bilirubin NEGATIVE (NEGATIVE) Urine Urobilinogen 0.2 (<2.0) EU/dL Ur Leukocyte Esterase NEGATIVE (NEGATIVE) Urine RBC 0-1 (0-2/HPF) Urine WBC 0-1 (0-5/HPF) Ur Epithelial Cells FEW (NONE-FEW) Urine Bacteria RARE (NEGATIVE) Urine HCG, Qual (NEGATIVE) Departure - Departure Time of Disposition: 21:00 Condition: Good
[2017-02-06 18:42] LABS: CHLORIDE,CL 106 mmol/L (98-110); SODIUM,NA 141 mmol/L (136-146)
[2017-02-06 21:09] VITALS: BP 141/89
--- NOTE | 2017-02-07 10:08 | CR ---
EXAM DATE: 02/06/17 PATIENT'S AGE: 32 Patient: MELANIA FOY Facility: [place], [place] Site . Site : 1985 Study: XRay Chest [id number] 8:22:42 PM Ordering Physician: Rose Marie Elkins Final Report: INDICATION: Rule out respiratory etiology TECHNIQUE: Chest 1 view. 7:57 p.m. COMPARISON: 7:00 p.m. FINDINGS: Cardiovascular and mediastinum: Heart size and vasculature are normal in caliber and appearance. Mediastinum is within normal limits. Lungs and pleural space: Lungs are clear. No sign of infiltrate or mass. No sign of pleural effusion. No pneumothorax. Bones and soft tissues: No significant findings. IMPRESSION: Unremarkable chest. No significant change compared to prior study. Dictated by Jose Warren MD @ 02/06/2017 8:32:49 PM Dictated by: Jose Warren MD @ 02/06/2017 20:32:58 (Electronic Signature) Report Signed by Proxy. JUMA
--- NOTE | 2017-02-07 10:08 | CR ---
EXAM DATE: 02/06/17 PATIENT'S AGE: 32 Patient: MELANIA FOY Facility: [place], [place] Site . Site : 1985 Study: XRay Chest [id number] 7:49:36 PM Ordering Physician: oRse Marie Elkins Final Report: INDICATION: HBP TECHNIQUE: Chest 1 view. COMPARISON: None. FINDINGS: Cardiovascular and mediastinum: Heart size and vasculature are normal in caliber and appearance. Mediastinum is within normal limits. Lungs and pleural space: Lungs are clear. No sign of infiltrate or mass. No sign of pleural effusion. No pneumothorax. Bones and soft tissues: No significant findings. IMPRESSION: Unremarkable chest. Dictated by: Jose Warren MD @ 02/06/2017 19:57:02 (Electronic Signature) Report Signed by Proxy. [facility]
== END 2017-02-06 21:08 | disposition home or self-care (01) ==
LOC: MW.ED 17:23
DX: R00.0 Tachycardia, unspecified (principal); I10 Essential (primary) hypertension; F41.9 Anxiety disorder, unspecified; R23.2 Flushing; Z79.899 Other long term (current) drug therapy
CPT/HCPCS: 36415; 71010; 71010-26; 80053; 81001; 81025; 83036; 84443; 84484; 85025; 85379; 93005; 99284; 99285-25

== ENCOUNTER 2017-12-17 01:55 | Observation (INO) | payer MEDICAID ==
[2017-12-17] MEDS ORDERED: Sodium Chloride 0.9% 1,000 ML IV ONE (02:08)
[2017-12-17] MEDS ORDERED: Pantoprazole 40 MG Vial IVPUSH ONE (02:09)
--- NOTE | 2017-12-17 02:09 | EDM.PDOC ---
ED HPI GENERAL MEDICAL PROBLEM - General Stated Complaint: CHEST PAIN Time Seen by Provider: 12/17/17 02:09 Source of Information: Reports: Patient - History of Present Illness INITIAL COMMENTS - FREE TEXT/NARRATIVE: HISTORY AND PHYSICAL: History of present illness: [] Review of systems: As per history of present illness and below otherwise all systems reviewed and negative. Past medical history: As per history of present illness and as reviewed below otherwise noncontributory. Surgical history: As per history of present illness and as reviewed below otherwise noncontributory. Social history: No reported history of drug or alcohol abuse. Family history: As per history of present illness and as reviewed below otherwise noncontributory. Physical exam: HEENT: Atraumatic, normocephalic, pupils reactive, negative for conjunctival pallor or scleral icterus, mucous membranes moist, throat clear, neck supple, nontender, trachea midline. Lungs: Clear to auscultation, breath sounds equal bilaterally, chest nontender. Heart: S1S2, regular, negative for clicks, rubs, or JVD. Abdomen: Soft, nondistended, nontender. Negative for masses or hepatosplenomegaly. Negative for costovertebral tenderness. Pelvis: Stable nontender. Genitourinary: Deferred. Rectal: Deferred. Extremities: Atraumatic, negative for cords or calf pain. Neurovascular unremarkable. Neuro: Awake, alert, oriented. Cranial nerves II through XII unremarkable. Cerebellum unremarkable. Motor and sensory unremarkable throughout. Exam nonfocal. Diagnostics: [] Therapeutics: [] Impression: [] Definitive disposition and diagnosis as appropriate pending reevaluation and review of above. 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: Neurological History: Reports: Migraines Psychiatric History: Reports: Anxiety, Depression Dermatologic History: Reports: Eczema - Past Surgical History HEENT Surgical History: Reports: Adenoidectomy, Tonsillectomy GI Surgical History: Reports: Cholecystectomy Female Surgical History: Reports: Section Social & Family History - Family History Family Medical History: Noncontributory - Caffeine Use Caffeine Use: Reports: Coffee, Energy Drinks Course - Orders/Labs/Meds Orders: Active Orders 24 hr Category Date Time Status CBC WITH AUTO DIFF [HEME] Stat Lab 12/17/17 02:08 Ordered COMPREHENSIVE METABOLIC PN,CMP [CHEM] Stat Lab 12/17/17 02:08 Ordered HCG QUALITATIVE,URINE [URCHEM] Stat Lab 12/17/17 02:08 Ordered TROPONIN I [CHEM] Stat Lab 12/17/17 02:08 Ordered UA W/MICROSCOPIC [URIN] Stat Lab 12/17/17 02:08 Ordered Pantoprazole [ProTONIX IV] Med 12/17/17 02:09 Once 80 mg IVPUSH .BOLUS ONE Sodium Chloride 0.9% [Normal Saline] 1,000 ml Med 12/17/17 02:08 Ordered IV STAT - My Orders Last 24 Hours: My Active Orders 12/17/17 02:08 CBC WITH AUTO DIFF [HEME] Stat COMPREHENSIVE METABOLIC PN,CMP [CHEM] Stat HCG QUALITATIVE,URINE [URCHEM] Stat TROPONIN I [CHEM] Stat UA W/MICROSCOPIC [URIN] Stat Sodium Chloride 0.9% [Normal Saline] 1,000 ml IV STAT 12/17/17 02:09 Pantoprazole [ProTONIX IV] 80 mg IVPUSH .BOLUS ONE - Assessment/Plan Last 24 Hours: My Active Orders 12/17/17 02:08 CBC WITH AUTO DIFF [HEME] Stat COMPREHENSIVE METABOLIC PN,CMP [CHEM] Stat HCG QUALITATIVE,URINE [URCHEM] Stat TROPONIN I [CHEM] Stat UA W/MICROSCOPIC [URIN] Stat Sodium Chloride 0.9% [Normal Saline] 1,000 ml IV STAT 12/17/17 02:09 Pantoprazole [ProTONIX IV] 80 mg IVPUSH .BOLUS ONE
[2017-12-17 02:53] LABS: CHLORIDE,CL 106 mmol/L (98-107); SODIUM,NA 137 mmol/L (136-145)
[2017-12-17] MEDS ORDERED: Iopamidol 755 MG/ML 200 ML Multipack Bottle IVPUSH STA (03:49)
[2017-12-17] MEDS ORDERED: Morphine 2 MG/ML Syringe IVPUSH ONE (04:26)
[2017-12-17] MEDS ORDERED: Sodium Chloride 0.9% 1,000 ML IV SCH (04:30)
[2017-12-17] MEDS ORDERED: LORazepam 2 MG/ML SDV IVPUSH ONE (04:59)
[2017-12-17] MEDS ORDERED: Ondansetron 4 MG/2 ML SDV IVPUSH PRN (05:57)
[2017-12-17] MEDS: HYDROmorphone 1 MG/ML Syringe IVPUSH PRN ×3 (06:24→15:57)
--- NOTE | 2017-12-17 09:45 | PCM.CONS ---
H&P History of Present Illness - General Date of Service: 12/17/17 Admit Problem/Dx: Admission Diagnosis/Problem Admission Diagnosis/Problem Pancreatitis Source of Information: Patient History Limitations: Reports: No Limitations - History of Present Illness Initial Comments - Free Text/Narative: Patient is a 32 year old female who woke up this morning with sharp LUQ pain. She presented to the ER. She was found to have a mild leukocytosis and elevation in pancreatic enzymes. A CT of the abdomen/pelvis showed a 6.5 x 5.5 cm lobulated, well-circumscribed low attenuation nonenhancing lesion of the spleen. It was non-specific but felt to be a splenic cyst. She has never had this pain before. She denies travel. She has not had trauma to the area other than a liver laceration during her last that resulted in a bile leak that resolved with conservative measures. Abdomen Pain Score (Numeric/FACES): 7 - Related Data Allergies/Adverse Reactions: Allergies Allergy/AdvReac Type Severity Reaction Status Date / Time No Known Allergies Allergy Verified 12/17/17 05:57 Home Medications: Home Meds ClonazePAM [KlonoPIN] 0.25 mg PO BEDTIME 02/06/17 [History] Desvenlafaxine Succinate [Pristiq ER] 25 mg PO DAILY 12/17/17 [History] Doxycycline [Vibramycin] PO 12/17/17 [History] Ibuprofen 400 mg PO BEDTIME 12/17/17 [History] Topiramate 100 mg PO BEDTIME 12/17/17 [History] metFORMIN HCl [Metformin HCl] 1,000 mg PO BID 12/17/17 [History] Past Medical History HEENT History: Reports: Other (See Below) Other HEENT History: sinus disease, rhinitis Cardiovascular History: Reports: None Respiratory History: Reports: Asthma Gastrointestinal History: Reports: GERD Genitourinary History: Reports: None 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: , 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 (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) Other OB/BYN History: PCOS Musculoskeletal History: Reports: None Neurological History: Reports: Migraines Psychiatric History: Reports: Anxiety, Depression, OCD Endocrine/Metabolic History: Reports: None, Obesity/BMI 30+ Hematologic History: Reports: None Immunologic History: Reports: None Oncologic (Cancer) History: Reports: None Dermatologic History: Reports: Eczema - Infectious Disease History Infectious Disease History: Reports: None - Past Surgical History Head Surgeries/Procedures: Reports: None HEENT Surgical History: Reports: Adenoidectomy, Tonsillectomy GI Surgical History: Reports: Cholecystectomy Female Surgical History: Reports: Section Social & Family History - Family History Family Medical History: Noncontributory - Tobacco Use Smoking Status *Q: Never Smoker Second Hand Smoke Exposure: No - Caffeine Use Caffeine Use: Reports: Tea - Recreational Drug Use Recreational Drug Use: No H&P Review of Systems - Review of Systems: Review Of Systems: ROS reveals no pertinent complaints other than HPI. Exam - Exam Exam: See Below - Vital Signs Vital Signs: Last Vital Signs Temp 36.3 C 12/17/17 04:59 Pulse 103 H 12/17/17 04:59 Resp 20 12/17/17 04:59 BP 143/77 H 12/17/17 04:59 Pulse Ox 97 12/17/17 04:59 Weight: 125.645 kg - Exam General: Alert, Oriented, Cooperative Lungs: Normal Respiratory Effort Cardiovascular: Regular Rate GI/Abdominal Exam: Other (Tender in LUQ ) Back Exam: Normal Inspection, Full Range of Motion - Patient Data Lab Results Last 24 hrs: Laboratory Results - last 24 hr 12/17/17 12/17/17 12/17/17 Range/Units 02:24 02:24 02:24 WBC 11.53 H (4.0-11.0) K/uL RBC 5.18 (4.30-5.90) M/uL Hgb 13.9 (12.0-16.0) g/dL Hct 40.9 (36.0-46.0) % MCV 79.0 L (80.0-98.0) fL MCH 26.8 L (27.0-32.0) pg MCHC 34.0 (31.0-37.0) g/dL RDW Std Deviation 41.9 (28.0-62.0) fl RDW Coeff of Nicole 15 (11.0-15.0) % Plt Count 318 (150-400) K/uL MPV 9.70 (7.40-12.00) fL Neut % (Auto) 83.5 H (48.0-80.0) % Lymph % (Auto) 12.3 L (16.0-40.0) % Sanders % (Auto) 3.8 (0.0-15.0) % Eos % (Auto) 0.3 (0.0-7.0) % Baso % (Auto) 0.1 (0.0-1.5) % Neut # (Auto) 9.6 H (1.4-5.7) K/uL Lymph # (Auto) 1.4 (0.6-2.4) K/uL Sanders # (Auto) 0.4 (0.0-0.8) K/uL Eos # (Auto) 0.0 (0.0-0.7) K/uL Baso # (Auto) 0.0 (0.0-0.1) K/uL Sodium 137 (136-145) mmol/L Potassium 4.4 (3.5-5.1) mmol/L Chloride 106 (98-107) mmol/L Carbon Dioxide 21.0 (21.0-32.0) mmol/L BUN 13 (7.0-18.0) mg/dL Creatinine 0.9 (0.6-1.0) mg/dL Est Cr Clr Drug Dosing 80.75 mL/min Estimated GFR (MDRD) > 60.0 ml/min Glucose 113 H (74-106) mg/dL Calcium 9.5 (8.5-10.1) mg/dL Total Bilirubin 0.2 (0.2-1.0) mg/dL AST 23 (15-37) IU/L ALT 74 H (14-63) IU/L Alkaline Phosphatase 58 (46-116) U/L Troponin I < 0.050 (0.000-0.056) ng/mL Total Protein 7.8 (6.4-8.2) g/dL Albumin 3.9 (3.4-5.0) g/dL Globulin 3.9 H (2.0-3.5) g/dL Albumin/Globulin Ratio 1.0 L (1.3-2.8) Lipase 430 H (73-393) U/L Urine Color Urine Appearance Urine pH (5.0-8.0) Ur Specific [place] (1.001-1.035) Urine Protein (NEGATIVE) mg/dL Urine Glucose (UA) (NEGATIVE) mg/dL Urine Ketones (NEGATIVE) mg/dL Urine Occult Blood (NEGATIVE) Urine Nitrite (NEGATIVE) Urine Bilirubin (NEGATIVE) Urine Urobilinogen (<2.0) EU/dL Ur Leukocyte Esterase (NEGATIVE) Urine RBC (0-2/HPF) Urine WBC (0-5/HPF) Ur Epithelial Cells (NONE-FEW) Amorphous Sediment (NEGATIVE) Urine Bacteria (NEGATIVE) Urine HCG, Qual (NEGATIVE) 12/17/17 12/17/17 Range/Units 02:50 02:50 WBC (4.0-11.0) K/uL RBC (4.30-5.90) M/uL Hgb (12.0-16.0) g/dL Hct (36.0-46.0) % MCV (80.0-98.0) fL MCH (27.0-32.0) pg MCHC (31.0-37.0) g/dL RDW Std Deviation (28.0-62.0) fl RDW Coeff of Nicole (11.0-15.0) % Plt Count (150-400) K/uL MPV (7.40-12.00) fL Neut % (Auto) (48.0-80.0) % Lymph % (Auto) (16.0-40.0) % Sanders % (Auto) (0.0-15.0) % Eos % (Auto) (0.0-7.0) % Baso % (Auto) (0.0-1.5) % Neut # (Auto) (1.4-5.7) K/uL Lymph # (Auto) (0.6-2.4) K/uL Sanders # (Auto) (0.0-0.8) K/uL Eos # (Auto) (0.0-0.7) K/uL Baso # (Auto) (0.0-0.1) K/uL Sodium (136-145) mmol/L Potassium (3.5-5.1) mmol/L Chloride (98-107) mmol/L Carbon Dioxide (21.0-32.0) mmol/L BUN (7.0-18.0) mg/dL Creatinine (0.6-1.0) mg/dL Est Cr Clr Drug Dosing mL/min Estimated GFR (MDRD) ml/min Glucose (74-106) mg/dL Calcium (8.5-10.1) mg/dL Total Bilirubin (0.2-1.0) mg/dL AST (15-37) IU/L ALT (14-63) IU/L Alkaline Phosphatase (46-116) U/L Troponin I (0.000-0.056) ng/mL Total Protein (6.4-8.2) g/dL Albumin (3.4-5.0) g/dL Globulin (2.0-3.5) g/dL Albumin/Globulin Ratio (1.3-2.8) Lipase (73-393) U/L Urine Color YELLOW Urine Appearance HAZY Urine pH 8.5 H (5.0-8.0) Ur Specific [place] 1.025 (1.001-1.035) Urine Protein NEGATIVE (NEGATIVE) mg/dL Urine Glucose (UA) NEGATIVE (NEGATIVE) mg/dL Urine Ketones NEGATIVE (NEGATIVE) mg/dL Urine Occult Blood NEGATIVE (NEGATIVE) Urine Nitrite NEGATIVE (NEGATIVE) Urine Bilirubin NEGATIVE (NEGATIVE) Urine Urobilinogen 0.2 (<2.0) EU/dL Ur Leukocyte Esterase NEGATIVE (NEGATIVE) Urine RBC 0-2 (0-2/HPF) Urine WBC 0-1 (0-5/HPF) Ur Epithelial Cells FEW (NONE-FEW) Amorphous Sediment MODERATE (NEGATIVE) Urine Bacteria FEW (NEGATIVE) Urine HCG, Qual NEGATIVE (NEGATIVE) Result Diagrams: 12/17/17 02:24 12/17/17 02:24 Consult PN Assessment/Plan Procedures: Procedures ASSAY OF PROGESTERONE (02/10/17) ASSAY OF TROPONIN QUANT (02/06/17) ASSAY THYROID STIM HORMONE (02/06/17) CHEST X-RAY 1 VIEW FRONTAL (02/06/17) COMPLETE CBC W/AUTO DIFF WBC (02/06/17) COMPREHEN METABOLIC PANEL (02/06/17) CT MAXILLOFACIAL W/O DYE (05/20/16) CT THORAX W/O DYE (05/20/16) ELECTROCARDIOGRAM TRACING (02/06/17) EMERGENCY DEPT VISIT (02/06/17) FIBRIN DEGRADATION QUANT (02/06/17) GLYCOSYLATED HEMOGLOBIN TEST (02/06/17) HPV HIGH-RISK TYPES (02/02/17) ROUTINE VENIPUNCTURE (02/06/17) URINALYSIS AUTO W/SCOPE (02/06/17) URINE TEST (02/06/17) (1) Splenic cyst SNOMED Code(s): 28963221 Code(s): D73.4 - CYST OF SPLEEN Current Visit: Yes Problem List Initiated/Reviewed/Updated: Yes My Orders Last 24 Hours: I visited with the patient. We discussed her CT findings. This may Plan: I explained to the patient that this may be a cyst, but she should obtain follow up imaging with an MRI to better characterize the lesion. This can be done tomorrow if possible or as an outpatient. It is unknown whether this has an association with her elevated lipase or if the pain is coming from the splenic lesion. If it is a cyst, it is large enough and symptomatic, so she could be considered for elective surgery. She should be kept NPO with IVF and IV pain medication. Once her pain has resolved she can see me in clinic for follow up as an outpatient. If the pain gets worse, her vitals become unstable or she develops peritoneal signs, she will need to be transferred for further work up or possible surgery.
[2017-12-17] MEDS: DESVENLAFAXINE 25 MG PO SCH (11:01)
[2017-12-17] MEDS: Sodium Chloride 0.9% 1,000 ML IV SCH ×2 (11:46→20:27)
[2017-12-17] MEDS: Levofloxacin/Dextrose 5%-Water 750 MG in Premix Bag 1 BAG IV SCH (11:46)
[2017-12-17] MEDS: LORazepam 2 MG/ML SDV IVPUSH ONE ×2 (13:49→15:40)
--- NOTE | 2017-12-17 14:00 | PCM.SN ---
- Free Text/Narrative Note: I came to check on patient. She remains tender in the LUQ. She has anxiety baseline and this hospitalization has made her more anxious. We discussed in great detail her cares. She had a CT chest in May that showed a lesion in her spleen (called a cyst) at approximately the same size. I will recheck her lipase and cbc BMP in the evening. Remainder of cares per medicine team. Will attempt to get an MR of the abdomen tomorrow to better characterize this lesion.
[2017-12-17] MEDS ORDERED: ClonazePAM 0.5 MG Tab PO PRN (14:43)
[2017-12-17] MEDS: LORazepam 1 MG Tab PO PRN (18:51)
[2017-12-17 19:33] LABS: CHLORIDE,CL 106 mmol/L (98-107); SODIUM,NA 137 mmol/L (136-145)
[2017-12-17] MEDS ORDERED: ClonazePAM 0.5 MG Tab PO SCH (21:00)
[2017-12-17] MEDS ORDERED: Topiramate 100 MG Tab PO SCH (21:00)
--- NOTE | 2017-12-17 22:53 | PCM.HP ---
H&P History of Present Illness - General Admit Problem/Dx: Admission Diagnosis/Problem Admission Diagnosis/Problem Pancreatitis Abdomen Pain Score (Numeric/FACES): 7 - Related Data Allergies/Adverse Reactions: Allergies Allergy/AdvReac Type Severity Reaction Status Date / Time No Known Allergies Allergy Verified 12/17/17 05:57 Home Medications: Home Meds ClonazePAM [KlonoPIN] 0.5 mg PO BEDTIME 02/06/17 [History] Desvenlafaxine Succinate [Pristiq ER] 25 mg PO DAILY 12/17/17 [History] Doxycycline [Vibramycin] PO 12/17/17 [History] Ibuprofen 400 mg PO BEDTIME 12/17/17 [History] Topiramate 100 mg PO BEDTIME 12/17/17 [History] metFORMIN HCl [Metformin HCl] 1,000 mg PO BID 12/17/17 [History] Past Medical History HEENT History: Reports: Other (See Below) Other HEENT History: sinus disease, rhinitis Cardiovascular History: Reports: None Respiratory History: Reports: Asthma Gastrointestinal History: Reports: GERD Genitourinary History: Reports: None 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: Reports: , Other (See Below) Other OB/BYN History: PCOS Musculoskeletal History: Reports: None Neurological History: Reports: Migraines Psychiatric History: Reports: Anxiety, Depression, OCD Endocrine/Metabolic History: Reports: None, Obesity/BMI 30+ Hematologic History: Reports: None Immunologic History: Reports: None Oncologic (Cancer) History: Reports: None Dermatologic History: Reports: Eczema - Infectious Disease History Infectious Disease History: Reports: None - Past Surgical History Head Surgeries/Procedures: Reports: None HEENT Surgical History: Reports: Adenoidectomy, Tonsillectomy GI Surgical History: Reports: Cholecystectomy Female Surgical History: Reports: Section Social & Family History - Family History Family Medical History: Noncontributory - Tobacco Use Smoking Status *Q: Never Smoker Second Hand Smoke Exposure: No - Caffeine Use Caffeine Use: Reports: Tea - Recreational Drug Use Recreational Drug Use: No Exam - Vital Signs Vital Signs: Last Vital Signs Temp 97.8 F 12/17/17 20:00 Pulse 81 12/17/17 20:00 Resp 20 12/17/17 20:00 BP 119/72 12/17/17 20:00 Pulse Ox 100 12/17/17 20:00 Weight: 277 lb - Patient Data Lab Results Last 24 hrs: Laboratory Results - last 24 hr 12/17/17 12/17/17 12/17/17 Range/Units 02:24 02:24 02:24 WBC 11.53 H (4.0-11.0) K/uL RBC 5.18 (4.30-5.90) M/uL Hgb 13.9 (12.0-16.0) g/dL Hct 40.9 (36.0-46.0) % MCV 79.0 L (80.0-98.0) fL MCH 26.8 L (27.0-32.0) pg MCHC 34.0 (31.0-37.0) g/dL RDW Std Deviation 41.9 (28.0-62.0) fl RDW Coeff of Nicole 15 (11.0-15.0) % Plt Count 318 (150-400) K/uL MPV 9.70 (7.40-12.00) fL Neut % (Auto) 83.5 H (48.0-80.0) % Lymph % (Auto) 12.3 L (16.0-40.0) % [place] % (Auto) 3.8 (0.0-15.0) % Eos % (Auto) 0.3 (0.0-7.0) % Baso % (Auto) 0.1 (0.0-1.5) % Neut # (Auto) 9.6 H (1.4-5.7) K/uL Lymph # (Auto) 1.4 (0.6-2.4) K/uL [place] # (Auto) 0.4 (0.0-0.8) K/uL Eos # (Auto) 0.0 (0.0-0.7) K/uL Baso # (Auto) 0.0 (0.0-0.1) K/uL Nucleated RBC % /100WBC Nucleated RBCs # K/uL Sodium 137 (136-145) mmol/L Potassium 4.4 (3.5-5.1) mmol/L Chloride 106 (98-107) mmol/L Carbon Dioxide 21.0 (21.0-32.0) mmol/L BUN 13 (7.0-18.0) mg/dL Creatinine 0.9 (0.6-1.0) mg/dL Est Cr Clr Drug Dosing 80.75 mL/min Estimated GFR (MDRD) > 60.0 ml/min Glucose 113 H (74-106) mg/dL POC Glucose (60-110) mg/dL Calcium 9.5 (8.5-10.1) mg/dL Total Bilirubin 0.2 (0.2-1.0) mg/dL AST 23 (15-37) IU/L ALT 74 H (14-63) IU/L Alkaline Phosphatase 58 (46-116) U/L Troponin I < 0.050 (0.000-0.056) ng/mL Total Protein 7.8 (6.4-8.2) g/dL Albumin 3.9 (3.4-5.0) g/dL Globulin 3.9 H (2.0-3.5) g/dL Albumin/Globulin Ratio 1.0 L (1.3-2.8) Triglycerides (0-200) mg/dL Cholesterol (50-200) mg/dL LDL Cholesterol, Calc (60-180) mg/dL VLDL Cholesterol (5-55) mg/dL HDL Cholesterol (40-60) mg/dL Cholesterol/HDL Ratio (3.3-6.0) Lipase 430 H (73-393) U/L Urine Color Urine Appearance Urine pH (5.0-8.0) Ur Specific [place] (1.001-1.035) Urine Protein (NEGATIVE) mg/dL Urine Glucose (UA) (NEGATIVE) mg/dL Urine Ketones (NEGATIVE) mg/dL Urine Occult Blood (NEGATIVE) Urine Nitrite (NEGATIVE) Urine Bilirubin (NEGATIVE) Urine Urobilinogen (<2.0) EU/dL Ur Leukocyte Esterase (NEGATIVE) Urine RBC (0-2/HPF) Urine WBC (0-5/HPF) Ur Epithelial Cells (NONE-FEW) Amorphous Sediment (NEGATIVE) Urine Bacteria (NEGATIVE) Urine HCG, Qual (NEGATIVE) 12/17/17 12/17/17 12/17/17 Range/Units 02:24 02:50 02:50 WBC (4.0-11.0) K/uL RBC (4.30-5.90) M/uL Hgb (12.0-16.0) g/dL Hct (36.0-46.0) % MCV (80.0-98.0) fL MCH (27.0-32.0) pg MCHC (31.0-37.0) g/dL RDW Std Deviation (28.0-62.0) fl RDW Coeff of Nicole (11.0-15.0) % Plt Count (150-400) K/uL MPV (7.40-12.00) fL Neut % (Auto) (48.0-80.0) % Lymph % (Auto) (16.0-40.0) % [place] % (Auto) (0.0-15.0) % Eos % (Auto) (0.0-7.0) % Baso % (Auto) (0.0-1.5) % Neut # (Auto) (1.4-5.7) K/uL Lymph # (Auto) (0.6-2.4) K/uL [place] # (Auto) (0.0-0.8) K/uL Eos # (Auto) (0.0-0.7) K/uL Baso # (Auto) (0.0-0.1) K/uL Nucleated RBC % /100WBC Nucleated RBCs # K/uL Sodium (136-145) mmol/L Potassium (3.5-5.1) mmol/L Chloride (98-107) mmol/L Carbon Dioxide (21.0-32.0) mmol/L BUN (7.0-18.0) mg/dL Creatinine (0.6-1.0) mg/dL Est Cr Clr Drug Dosing mL/min Estimated GFR (MDRD) ml/min Glucose (74-106) mg/dL POC Glucose (60-110) mg/dL Calcium (8.5-10.1) mg/dL Total Bilirubin (0.2-1.0) mg/dL AST (15-37) IU/L ALT (14-63) IU/L Alkaline Phosphatase (46-116) U/L Troponin I (0.000-0.056) ng/mL Total Protein (6.4-8.2) g/dL Albumin (3.4-5.0) g/dL Globulin (2.0-3.5) g/dL Albumin/Globulin Ratio (1.3-2.8) Triglycerides 139 (0-200) mg/dL Cholesterol 230 H (50-200) mg/dL LDL Cholesterol, Calc 155 (60-180) mg/dL VLDL Cholesterol 27 (5-55) mg/dL HDL Cholesterol 47 (40-60) mg/dL Cholesterol/HDL Ratio 4.9 (3.3-6.0) Lipase (73-393) U/L Urine Color YELLOW Urine Appearance HAZY Urine pH 8.5 H (5.0-8.0) Ur Specific [place] 1.025 (1.001-1.035) Urine Protein NEGATIVE (NEGATIVE) mg/dL Urine Glucose (UA) NEGATIVE (NEGATIVE) mg/dL Urine Ketones NEGATIVE (NEGATIVE) mg/dL Urine Occult Blood NEGATIVE (NEGATIVE) Urine Nitrite NEGATIVE (NEGATIVE) Urine Bilirubin NEGATIVE (NEGATIVE) Urine Urobilinogen 0.2 (<2.0) EU/dL Ur Leukocyte Esterase NEGATIVE (NEGATIVE) Urine RBC 0-2 (0-2/HPF) Urine WBC 0-1 (0-5/HPF) Ur Epithelial Cells FEW (NONE-FEW) Amorphous Sediment MODERATE (NEGATIVE) Urine Bacteria FEW (NEGATIVE) Urine HCG, Qual NEGATIVE (NEGATIVE) 12/17/17 12/17/17 12/17/17 Range/Units 13:15 15:31 19:10 WBC (4.0-11.0) K/uL RBC (4.30-5.90) M/uL Hgb (12.0-16.0) g/dL Hct (36.0-46.0) % MCV (80.0-98.0) fL MCH (27.0-32.0) pg MCHC (31.0-37.0) g/dL RDW Std Deviation (28.0-62.0) fl RDW Coeff of Nicole (11.0-15.0) % Plt Count (150-400) K/uL MPV (7.40-12.00) fL Neut % (Auto) (48.0-80.0) % Lymph % (Auto) (16.0-40.0) % [place] % (Auto) (0.0-15.0) % Eos % (Auto) (0.0-7.0) % Baso % (Auto) (0.0-1.5) % Neut # (Auto) (1.4-5.7) K/uL Lymph # (Auto) (0.6-2.4) K/uL [place] # (Auto) (0.0-0.8) K/uL Eos # (Auto) (0.0-0.7) K/uL Baso # (Auto) (0.0-0.1) K/uL Nucleated RBC % /100WBC Nucleated RBCs # K/uL Sodium (136-145) mmol/L Potassium (3.5-5.1) mmol/L Chloride (98-107) mmol/L Carbon Dioxide (21.0-32.0) mmol/L BUN (7.0-18.0) mg/dL Creatinine (0.6-1.0) mg/dL Est Cr Clr Drug Dosing mL/min Estimated GFR (MDRD) ml/min Glucose (74-106) mg/dL POC Glucose 79 (60-110) mg/dL Calcium (8.5-10.1) mg/dL Total Bilirubin (0.2-1.0) mg/dL AST (15-37) IU/L ALT (14-63) IU/L Alkaline Phosphatase (46-116) U/L Troponin I < 0.050 < 0.050 (0.000-0.056) ng/mL Total Protein (6.4-8.2) g/dL Albumin (3.4-5.0) g/dL Globulin (2.0-3.5) g/dL Albumin/Globulin Ratio (1.3-2.8) Triglycerides (0-200) mg/dL Cholesterol (50-200) mg/dL LDL Cholesterol, Calc (60-180) mg/dL VLDL Cholesterol (5-55) mg/dL HDL Cholesterol (40-60) mg/dL Cholesterol/HDL Ratio (3.3-6.0) Lipase (73-393) U/L Urine Color Urine Appearance Urine pH (5.0-8.0) Ur Specific [place] (1.001-1.035) Urine Protein (NEGATIVE) mg/dL Urine Glucose (UA) (NEGATIVE) mg/dL Urine Ketones (NEGATIVE) mg/dL Urine Occult Blood (NEGATIVE) Urine Nitrite (NEGATIVE) Urine Bilirubin (NEGATIVE) Urine Urobilinogen (<2.0) EU/dL Ur Leukocyte Esterase (NEGATIVE) Urine RBC (0-2/HPF) Urine WBC (0-5/HPF) Ur Epithelial Cells (NONE-FEW) Amorphous Sediment (NEGATIVE) Urine Bacteria (NEGATIVE) Urine HCG, Qual (NEGATIVE) 08/19/18 08/19/18 Range/Units 19:10 19:10 WBC 8.99 (4.0-11.0) K/uL RBC 4.84 (4.30-5.90) M/uL Hgb 12.9 (12.0-16.0) g/dL Hct 38.7 (36.0-46.0) % MCV 80.0 (80.0-98.0) fL MCH 26.7 L (27.0-32.0) pg MCHC 33.3 (31.0-37.0) g/dL RDW Std Deviation 43.5 (28.0-62.0) fl RDW Coeff of Nicole 15 (11.0-15.0) % Plt Count 266 (150-400) K/uL MPV 9.40 (7.40-12.00) fL Neut % (Auto) (48.0-80.0) % Lymph % (Auto) (16.0-40.0) % [place] % (Auto) (0.0-15.0) % Eos % (Auto) (0.0-7.0) % Baso % (Auto) (0.0-1.5) % Neut # (Auto) (1.4-5.7) K/uL Lymph # (Auto) (0.6-2.4) K/uL [place] # (Auto) (0.0-0.8) K/uL Eos # (Auto) (0.0-0.7) K/uL Baso # (Auto) (0.0-0.1) K/uL Nucleated RBC % 0.0 /100WBC Nucleated RBCs # 0 K/uL Sodium 137 (136-145) mmol/L Potassium 4.1 (3.5-5.1) mmol/L Chloride 106 (98-107) mmol/L Carbon Dioxide 22.4 (21.0-32.0) mmol/L BUN 9 (7.0-18.0) mg/dL Creatinine 0.8 (0.6-1.0) mg/dL Est Cr Clr Drug Dosing 90.84 mL/min Estimated GFR (MDRD) > 60.0 ml/min Glucose 94 (74-106) mg/dL POC Glucose (60-110) mg/dL Calcium 8.4 L (8.5-10.1) mg/dL Total Bilirubin (0.2-1.0) mg/dL AST (15-37) IU/L ALT (14-63) IU/L Alkaline Phosphatase (46-116) U/L Troponin I (0.000-0.056) ng/mL Total Protein (6.4-8.2) g/dL Albumin (3.4-5.0) g/dL Globulin (2.0-3.5) g/dL Albumin/Globulin Ratio (1.3-2.8) Triglycerides (0-200) mg/dL Cholesterol (50-200) mg/dL LDL Cholesterol, Calc (60-180) mg/dL VLDL Cholesterol (5-55) mg/dL HDL Cholesterol (40-60) mg/dL Cholesterol/HDL Ratio (3.3-6.0) Lipase 146 (73-393) U/L Urine Color Urine Appearance Urine pH (5.0-8.0) Ur Specific [place] (1.001-1.035) Urine Protein (NEGATIVE) mg/dL Urine Glucose (UA) (NEGATIVE) mg/dL Urine Ketones (NEGATIVE) mg/dL Urine Occult Blood (NEGATIVE) Urine Nitrite (NEGATIVE) Urine Bilirubin (NEGATIVE) Urine Urobilinogen (<2.0) EU/dL Ur Leukocyte Esterase (NEGATIVE) Urine RBC (0-2/HPF) Urine WBC (0-5/HPF) Ur Epithelial Cells (NONE-FEW) Amorphous Sediment (NEGATIVE) Urine Bacteria (NEGATIVE) Urine HCG, Qual (NEGATIVE) Result Diagrams: 12/17/17 19:10 12/17/17 19:10 Orders Last 24hrs: Active Orders 24 hr Category Date Time Status Admission Status [Patient Status] [ADT] Routine ADT 12/17/17 05:36 Active Telemetry Monitoring [Cardiac Monitoring] [RC] Q8H Care 12/17/17 05:37 Active Vital Signs [RC] Q4H Care 12/17/17 08:00 Active Nothing per Oral Now Diet [DIET] Diet 12/17/17 Breakfast Active Abdomen Pelvis w Cont [CT] Stat Exams 12/17/17 03:01 Taken Chest 1V Frontal [CR] Stat Exams 12/17/17 02:37 Taken BASIC METABOLIC PANEL,BMP [CHEM] DAILY Lab 12/18/17 05:00 Ordered BASIC METABOLIC PANEL,BMP [CHEM] DAILY Lab 12/19/17 05:00 Ordered BASIC METABOLIC PANEL,BMP [CHEM] DAILY Lab 12/20/17 05:00 Ordered BASIC METABOLIC PANEL,BMP [CHEM] DAILY Lab 12/21/17 05:00 Ordered BASIC METABOLIC PANEL,BMP [CHEM] DAILY Lab 12/22/17 05:00 Ordered CBC WITH AUTO DIFF [HEME] DAILY Lab 12/18/17 05:00 Ordered CBC WITH AUTO DIFF [HEME] DAILY Lab 12/19/17 05:00 Ordered CBC WITH AUTO DIFF [HEME] DAILY Lab 12/20/17 05:00 Ordered CBC WITH AUTO DIFF [HEME] DAILY Lab 12/21/17 05:00 Ordered CBC WITH AUTO DIFF [HEME] DAILY Lab 12/22/17 05:00 Ordered HCG QUALITATIVE,URINE [URCHEM] Stat Lab 12/17/17 02:50 Ordered LIPASE [CHEM] DAILY Lab 12/18/17 05:00 Ordered LIPASE [CHEM] DAILY Lab 12/19/17 05:00 Ordered LIPASE [CHEM] DAILY Lab 12/20/17 05:00 Ordered LIPASE [CHEM] DAILY Lab 12/21/17 05:00 Ordered LIPASE [CHEM] DAILY Lab 12/22/17 05:00 Ordered UA W/MICROSCOPIC [URIN] Stat Lab 12/17/17 02:50 Ordered ClonazePAM [KlonoPIN] Med 12/17/17 21:00 Active 0.25 mg PO BEDTIME ClonazePAM [KlonoPIN] Med 12/17/17 14:43 Active 0.5 mg PO TID PRN HYDROmorphone [Dilaudid] Med 12/17/17 05:57 Active 1 mg IVPUSH Q3H PRN LORazepam [Ativan] Med 12/17/17 17:38 Active 1 mg PO Q6H PRN Levofloxacin/Dextrose 5%-Water [Levaquin in D5W 750 MG/ Med 12/17/17 11:30 Active 150 ML] 750 mg Premix Bag 1 bag IV Q24H Ondansetron [Zofran] Med 12/17/17 05:57 Active 4 mg IVPUSH Q6H PRN Patient's Own Medication [Ptom] Med 12/17/17 10:15 Active 1 each PO DAILY Sodium Chloride 0.9% [Normal Saline] 1,000 ml Med 12/17/17 06:00 Active IV ASDIRECTED Topiramate [Topamax] Med 12/17/17 21:00 Active 100 mg PO BEDTIME Medication Orders Clonazepam (Klonopin) 0.25 mg PO BEDTIME [facility] Last Admin: 12/17/17 20:29 Dose: 0.25 mg Clonazepam (Klonopin) 0.5 mg PO TID PRN PRN Reason: Anxiety Hydromorphone HCl (Dilaudid) 1 mg IVPUSH Q3H PRN PRN Reason: Pain Last Admin: 12/17/17 15:57 Dose: 1 mg Admin: 12/17/17 10:11 Dose: 1 mg Admin: 12/17/17 06:24 Dose: 1 mg Sodium Chloride (Normal Saline) 1,000 mls @ 150 mls/hr IV ASDIRECTED [facility] Last Admin: 12/17/17 20:27 Dose: 150 mls/hr Infusion: 12/17/17 18:27 Dose: 150 mls/hr Admin: 12/17/17 11:46 Dose: 150 mls/hr Levofloxacin/Dextrose 750 mg/ (Premix) 150 mls @ 100 mls/hr IV Q24H [facility] Last Admin: 12/17/17 11:46 Dose: 100 mls/hr Lorazepam (Ativan) 1 mg PO Q6H PRN PRN Reason: Anxiety Last Admin: 12/17/17 18:51 Dose: 1 mg Ondansetron HCl (Zofran) 4 mg IVPUSH Q6H PRN PRN Reason: Nausea/Vomiting Desvenlafaxine 25 Mg 1 each PO DAILY [facility] Last Admin: 12/17/17 11:01 Dose: Topiramate (Topamax) 100 mg PO BEDTIME [facility] Last Admin: 12/17/17 20:30 Dose: 100 mg
--- NOTE | 2017-12-17 23:53 | PCM.SN ---
- Free Text/Narrative Note: [id number]
--- NOTE | 2017-12-18 00:32 | HP ---
DATE OF : 1985 PRIMARY CARE PHYSICIAN: None PCP HISTORY OF PRESENT ILLNESS: The patient is a 32-year-old female, who presented to the emergency room because she woke up at 1:30 a.m. from deep sleep with tightness in the chest and anxiety. She felt her heart was racing and she felt pain in the chest and in the epigastru radiating in the back, also nausea, tried to vomit and she could not vomited bile. She had multiple episodes of nausea and retching. She denies alcohol use. She states she tested her cholesterol with her PCP and it was mildly elevated and was adviced diet. The patient drove herself to the emergency room. PAST MEDICAL HISTORY: 1. She had a gallbladder removed 6 years ago. 2. Bile leak. PAST SURGICAL HISTORY: 1. She had a history of tonsillectomy. 2. Two laparoscopic surgeries for endometriosis. 3. . 4. Gallbladder surgery. SOCIAL HISTORY: She does not smoke. No alcohol use. No drug use. She does not work right now. 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 FAMILY HISTORY: Her father had myocardial infarction and stroke at 69. Her mom has thyroid problem. REVIEW OF SYSTEMS: A 12-point review of systems is negative except as in history of present illness. PHYSICAL EXAMINATION: VITAL SIGNS: On admission; temperature 97.9, pulse rate 84, blood pressure 117/64, respiratory rate 16, and oxygen saturation 95%. HEENT: Head is atraumatic, normocephalic. Pupils are equally reactive to light. NECK: Supple. No thyromegaly. No lymphadenopathy. HEART: S1, S2. Regular rhythm and rate. No murmurs. LUNGS: Clear to auscultation bilaterally. ABDOMEN: There is tenderness to palpation in the epigastrium, no rebound Currently, she received pain medication. Positive bowel sounds. EXTREMITIES: No edema. NEUROLOGIC: She is alert and oriented x3. No gross focal neurologic deficits. LABORATORY DATA: At admission; WBC 11.53, hemoglobin 13.9, hematocrit 40.9, and platelet count 318. Sodium is 137, potassium 4.4, chloride 106, CO2 of 21, BUN 13, creatinine 0.9, glucose 113, calcium 9.5, total bilirubin 0.2, AST 23, ALT 74, alkaline phosphatase 58. Troponin less than 0.050. Total protein 7.8, albumin 3.9, triglycerides 139, cholesterol 230, LDL 155, VLDL 27, HDL 47, lipase 430. Urinalysis is negative. IMAGING: The patient had CT of the abdomen and pelvis and this was done with IV contrast and did show unremarkable pancreas with depression at 6.5 cm x 5.5 cm lobulated well circumscribed, low attenuation enhanced lesion involving the spleen. Findings are nonspecific, but may represent a splenic cyst. A similar 1.3 cm progressive superior aspect of the spleen, hepatic steatosis status post cholecystectomy. EKG shows sinus rate at 84 beats per minute. Chest x-ray was negative for acute disease. ASSESSMENT AND PLAN: 1. elevated lipase with abdominal pain radiating in the back , epigastric , severe - likely pancreatitis. We will admit the patient to observation. We will give the patient IV fluids, and we will put the patient n.p.o. and give the patient antinausea medication. Zofran 4 mg IV q.4 hours p.r.n. for nausea and vomiting and we will monitor the patient clinically. 2. Chest pain, likely the patient had anxiety and panic attack. We will order serial troponins and we will give the patient Ativan 1 mg q.4 hours p.r.n. for anxiety, f/up Lipid profile 3. For hyperlipidemia, patient to be started when stable, on Lipitor 20 mg p.o. daily as the patient previously was told to diet, and she is not able to lower her cholesterol. 4. Morbid obesity. The patient has a BMI of 46.1. The patient was recommended to lose weight. 5. Splenic cyst. The patient will need an MRI to further evaluate the cyst and she will be followed by Surgery. The patient also says that she was on antibiotic for walking pneumonia with doxycycline, and we will continue the patient with Levaquin 750 mg q.24 hours for a total of 7 days of antibiotics. Her chest x-ray is clear right now and she did not reported cough when I saw her ANTOPET / MODL /[id number] MTDD
[2017-12-18] MEDS: Sodium Chloride 0.9% 1,000 ML IV SCH (03:11)
[2017-12-18] MEDS: LORazepam 1 MG Tab PO PRN (03:17)
[2017-12-18 07:07] LABS: CHLORIDE,CL 110 mmol/L (98-107); SODIUM,NA 140 mmol/L (136-145)
[2017-12-18] MEDS: DESVENLAFAXINE 25 MG PO SCH (09:12)
--- NOTE | 2017-12-18 09:21 | PCM.CONSN ---
- General Info Date of Service: 12/18/17 Functional Status: Reports: Pain Controlled, Ambulating, Urinating - Review of Systems General: Reports: No Symptoms Pulmonary: Reports: No Symptoms Cardiovascular: Reports: No Symptoms Gastrointestinal: Reports: No Symptoms - Patient Data Vitals - Most Recent: Last Vital Signs Temp 36.4 C 12/18/17 08:00 Pulse 86 12/18/17 08:00 Resp 16 12/18/17 08:00 BP 136/86 12/18/17 08:00 Pulse Ox 98 12/18/17 08:00 Weight - Most Recent: 125.645 kg I&O - Last 24 Hours: Intake & Output 12/17/17 12/18/17 12/18/17 22:59 06:59 14:59 Intake Total 1584 60 Output Total 1000 Balance 584 60 Lab Results Last 24 Hours: Laboratory Results - last 24 hr 12/17/17 12/17/17 12/17/17 Range/Units 02:24 13:15 15:31 WBC (4.0-11.0) K/uL RBC (4.30-5.90) M/uL Hgb (12.0-16.0) g/dL Hct (36.0-46.0) % MCV (80.0-98.0) fL MCH (27.0-32.0) pg MCHC (31.0-37.0) g/dL RDW Std Deviation (28.0-62.0) fl RDW Coeff of Nicole (11.0-15.0) % Plt Count (150-400) K/uL MPV (7.40-12.00) fL Neut % (Auto) (48.0-80.0) % Lymph % (Auto) (16.0-40.0) % [place] % (Auto) (0.0-15.0) % Eos % (Auto) (0.0-7.0) % Baso % (Auto) (0.0-1.5) % Neut # (Auto) (1.4-5.7) K/uL Lymph # (Auto) (0.6-2.4) K/uL [place] # (Auto) (0.0-0.8) K/uL Eos # (Auto) (0.0-0.7) K/uL Baso # (Auto) (0.0-0.1) K/uL Nucleated RBC % /100WBC Nucleated RBCs # K/uL Sodium (136-145) mmol/L Potassium (3.5-5.1) mmol/L Chloride (98-107) mmol/L Carbon Dioxide (21.0-32.0) mmol/L BUN (7.0-18.0) mg/dL Creatinine (0.6-1.0) mg/dL Est Cr Clr Drug Dosing mL/min Estimated GFR (MDRD) ml/min Glucose (74-106) mg/dL POC Glucose 79 (60-110) mg/dL Calcium (8.5-10.1) mg/dL Troponin I < 0.050 (0.000-0.056) ng/mL Triglycerides 139 (0-200) mg/dL Cholesterol 230 H (50-200) mg/dL LDL Cholesterol, Calc 155 (60-180) mg/dL VLDL Cholesterol 27 (5-55) mg/dL HDL Cholesterol 47 (40-60) mg/dL Cholesterol/HDL Ratio 4.9 (3.3-6.0) Lipase (73-393) U/L 12/17/17 12/17/17 12/17/17 Range/Units 19:10 19:10 19:10 WBC 8.99 (4.0-11.0) K/uL RBC 4.84 (4.30-5.90) M/uL Hgb 12.9 (12.0-16.0) g/dL Hct 38.7 (36.0-46.0) % MCV 80.0 (80.0-98.0) fL MCH 26.7 L (27.0-32.0) pg MCHC 33.3 (31.0-37.0) g/dL RDW Std Deviation 43.5 (28.0-62.0) fl RDW Coeff of Nicole 15 (11.0-15.0) % Plt Count 266 (150-400) K/uL MPV 9.40 (7.40-12.00) fL Neut % (Auto) (48.0-80.0) % Lymph % (Auto) (16.0-40.0) % [place] % (Auto) (0.0-15.0) % Eos % (Auto) (0.0-7.0) % Baso % (Auto) (0.0-1.5) % Neut # (Auto) (1.4-5.7) K/uL Lymph # (Auto) (0.6-2.4) K/uL [place] # (Auto) (0.0-0.8) K/uL Eos # (Auto) (0.0-0.7) K/uL Baso # (Auto) (0.0-0.1) K/uL Nucleated RBC % 0.0 /100WBC Nucleated RBCs # 0 K/uL Sodium 137 (136-145) mmol/L Potassium 4.1 (3.5-5.1) mmol/L Chloride 106 (98-107) mmol/L Carbon Dioxide 22.4 (21.0-32.0) mmol/L BUN 9 (7.0-18.0) mg/dL Creatinine 0.8 (0.6-1.0) mg/dL Est Cr Clr Drug Dosing 90.84 mL/min Estimated GFR (MDRD) > 60.0 ml/min Glucose 94 (74-106) mg/dL POC Glucose (60-110) mg/dL Calcium 8.4 L (8.5-10.1) mg/dL Troponin I < 0.050 (0.000-0.056) ng/mL Triglycerides (0-200) mg/dL Cholesterol (50-200) mg/dL LDL Cholesterol, Calc (60-180) mg/dL VLDL Cholesterol (5-55) mg/dL HDL Cholesterol (40-60) mg/dL Cholesterol/HDL Ratio (3.3-6.0) Lipase 146 (73-393) U/L 12/18/17 12/18/17 Range/Units 06:06 06:06 WBC 7.51 (4.0-11.0) K/uL RBC 4.96 (4.30-5.90) M/uL Hgb 12.9 (12.0-16.0) g/dL Hct 39.7 (36.0-46.0) % MCV 80.0 (80.0-98.0) fL MCH 26.0 L (27.0-32.0) pg MCHC 32.5 (31.0-37.0) g/dL RDW Std Deviation 43.5 (28.0-62.0) fl RDW Coeff of Nicole 15 (11.0-15.0) % Plt Count 251 (150-400) K/uL MPV 9.50 (7.40-12.00) fL Neut % (Auto) 59.2 (48.0-80.0) % Lymph % (Auto) 33.7 (16.0-40.0) % [place] % (Auto) 6.5 (0.0-15.0) % Eos % (Auto) 0.5 (0.0-7.0) % Baso % (Auto) 0.1 (0.0-1.5) % Neut # (Auto) 4.4 (1.4-5.7) K/uL Lymph # (Auto) 2.5 H (0.6-2.4) K/uL [place] # (Auto) 0.5 (0.0-0.8) K/uL Eos # (Auto) 0.0 (0.0-0.7) K/uL Baso # (Auto) 0.0 (0.0-0.1) K/uL Nucleated RBC % 0.0 /100WBC Nucleated RBCs # 0 K/uL Sodium 140 (136-145) mmol/L Potassium 4.1 (3.5-5.1) mmol/L Chloride 110 H (98-107) mmol/L Carbon Dioxide 22.1 (21.0-32.0) mmol/L BUN 9 (7.0-18.0) mg/dL Creatinine 0.8 (0.6-1.0) mg/dL Est Cr Clr Drug Dosing 90.84 mL/min Estimated GFR (MDRD) > 60.0 ml/min Glucose 86 (74-106) mg/dL POC Glucose (60-110) mg/dL Calcium 8.4 L (8.5-10.1) mg/dL Troponin I (0.000-0.056) ng/mL Triglycerides (0-200) mg/dL Cholesterol (50-200) mg/dL LDL Cholesterol, Calc (60-180) mg/dL VLDL Cholesterol (5-55) mg/dL HDL Cholesterol (40-60) mg/dL Cholesterol/HDL Ratio (3.3-6.0) Lipase 243 (73-393) U/L Med Orders - Current: Current Medications Clonazepam (Klonopin) 0.25 mg PO BEDTIME [facility] Last Admin: 12/17/17 20:29 Dose: 0.25 mg Clonazepam (Klonopin) 0.5 mg PO TID PRN PRN Reason: Anxiety Last Admin: 12/18/17 00:03 Dose: 0.5 mg Hydromorphone HCl (Dilaudid) 1 mg IVPUSH Q3H PRN PRN Reason: Pain Last Admin: 12/17/17 15:57 Dose: 1 mg Levofloxacin/Dextrose 750 mg/ (Premix) 150 mls @ 100 mls/hr IV Q24H [facility] Last Admin: 12/17/17 11:46 Dose: 100 mls/hr Lorazepam (Ativan) 1 mg PO Q6H PRN PRN Reason: Anxiety Last Admin: 12/18/17 03:17 Dose: 1 mg Ondansetron HCl (Zofran) 4 mg IVPUSH Q6H PRN PRN Reason: Nausea/Vomiting Desvenlafaxine 25 Mg 1 each PO DAILY [facility] Last Admin: 12/18/17 09:12 Dose: Not Given Topiramate (Topamax) 100 mg PO BEDTIME [facility] Last Admin: 12/17/17 20:30 Dose: 100 mg Discontinued Medications Sodium Chloride (Normal Saline) 1,000 mls @ 999 mls/hr IV STAT ONE Stop: 12/17/17 03:08 Last Admin: 12/17/17 02:28 Dose: 999 mls/hr Sodium Chloride (Normal Saline) 1,000 mls @ 150 mls/hr IV STAT [facility] Last Admin: 12/17/17 05:02 Dose: 150 mls/hr Sodium Chloride (Normal Saline) 1,000 mls @ 150 mls/hr IV ASDIRECTED [facility] Last Admin: 12/18/17 03:11 Dose: 150 mls/hr Iopamidol (Isovue Multipack-370 (76%)) 100 ml IVPUSH ONETIME STA Stop: 12/17/17 03:50 Last Admin: 12/17/17 03:50 Dose: 100 ml Lorazepam (Ativan) 1 mg IVPUSH ONETIME ONE Stop: 12/17/17 05:00 Last Admin: 12/17/17 05:09 Dose: 1 mg Lorazepam (Ativan) 1 mg IVPUSH ONETIME ONE Stop: 12/17/17 13:03 Last Admin: 12/17/17 15:40 Dose: Not Given Morphine Sulfate (Morphine) 2 mg IVPUSH ONETIME ONE Stop: 12/17/17 04:27 Last Admin: 12/17/17 05:02 Dose: 2 mg Pantoprazole Sodium (Protonix Iv) 80 mg IVPUSH .BOLUS ONE Stop: 12/17/17 02:10 Last Admin: 12/17/17 02:29 Dose: 80 mg - Exam General: Alert, Oriented, Cooperative HEENT: Pupils Equal Lungs: Normal Respiratory Effort Cardiovascular: Regular Rate GI/Abdominal Exam: Soft, Non-Tender, No Distention, No Mass Consult PN Assessment/Plan Procedures: Procedures ASSAY OF PROGESTERONE (02/10/17) ASSAY OF TROPONIN QUANT (02/06/17) ASSAY THYROID STIM HORMONE (02/06/17) CHEST X-RAY 1 VIEW FRONTAL (02/06/17) COMPLETE CBC W/AUTO DIFF WBC (02/06/17) COMPREHEN METABOLIC PANEL (02/06/17) CT MAXILLOFACIAL W/O DYE (05/20/16) CT THORAX W/O DYE (05/20/16) ELECTROCARDIOGRAM TRACING (02/06/17) EMERGENCY DEPT VISIT (02/06/17) FIBRIN DEGRADATION QUANT (02/06/17) GLYCOSYLATED HEMOGLOBIN TEST (02/06/17) HPV HIGH-RISK TYPES (02/02/17) ROUTINE VENIPUNCTURE (02/06/17) URINALYSIS AUTO W/SCOPE (02/06/17) URINE TEST (02/06/17) (1) Splenic cyst SNOMED Code(s): 19746313 Code(s): D73.4 - CYST OF SPLEEN Current Visit: Yes Problem List Initiated/Reviewed/Updated: Yes My Orders Last 24 Hours: My Active Orders 12/18/17 07:30 Abdomen w wo Cont [MR] Routine 12/18/17 Lunch Regular Diet [DIET] Plan: Patients abdominal pain is gone and she wants to eat. Advanced diet to regular. If diet is tolerated she can discharge home. MR abdomen is scheduled for tomorrow at 1pm. Can follow up with me in clinic in 1-2 weeks.
[2017-12-18] MEDS: Levofloxacin/Dextrose 5%-Water 750 MG in Premix Bag 1 BAG IV SCH (11:30)
[2017-12-18 11:46] VITALS: BP 134/86
--- NOTE | 2017-12-18 13:49 | CR ---
EXAM DATE: 12/17/17 PATIENT'S AGE: 32 Patient: MELANIA FOY Facility: [place], [place] Site . Site : 1985 Study: XRay Chest [id number]/19/2018 3:48:25 AM Ordering Physician: Ori Phillips Final Report: INDICATION: left sided pain TECHNIQUE: Chest 1 view. COMPARISON: 02/06/17 FINDINGS: Cardiovascular and mediastinum: Heart size and vasculature are normal in caliber and appearance. Mediastinum is within normal limits. Lungs and pleural space: Lungs are clear. No sign of infiltrate or mass. No sign of pleural effusion. No pneumothorax. Bones and soft tissues: No significant findings. IMPRESSION: Unremarkable chest. Dictated by: Jose Warren MD @ 12/17/2017 04:00:04 (Electronic Signature) Report Signed by Proxy. JUMA
--- NOTE | 2017-12-18 13:50 | CT ---
EXAM DATE: 12/17/17 PATIENT'S AGE: 32 Patient: MELANIA FOY Facility: [place], [place] Site . Site : 1985 Study: CT Abdomen/Pelvis [id number]/19/2018 3:49:07 AM Ordering Physician: Ori Phillips Final Report: INDICATION: Left upper quadrant pain TECHNIQUE: CT abdomen and pelvis acquired with IV contrast. 100 cc Isovue 370 COMPARISON: None FINDINGS: Lower chest: Unremarkable. Liver: Hepatic steatosis. Spleen: 6.5 centimeter x 5.5 centimeter lobulated well-circumscribed low attenuation nonenhancing lesion involving the spleen. Findings are nonspecific but may represent a splenic cyst. Similar 1.3 centimeter probable cyst superior aspect of the spleen. Pancreas: Unremarkable. Gallbladder and bile ducts: Status post cholecystectomy. Kidneys: Unremarkable. Adrenal glands: Unremarkable. GI tract: Unremarkable. Appendix is normal. Vascular structures: Unremarkable. Lymph nodes: Unremarkable. Miscellaneous: Fat containing umbilical hernia. No free air or significant free fluid. Pelvic Organs: Unremarkable. Bones: Unremarkable for age. IMPRESSION: 6.5 centimeter x 5.5 centimeter lobulated well-circumscribed low attenuation nonenhancing lesion involving the spleen. Findings are nonspecific but may represent a splenic cyst. Similar 1.3 centimeter probable cyst superior aspect of this spleen. Colonic fecal retention. Hepatic steatosis. Status post cholecystectomy. Dictated by Jose Warren MD @ 12/17/2017 4:06:44 AM Dictated by: Jose Warren MD @ 12/17/2017 04:06:52 (Electronic Signature) Report Signed by Proxy. JUMA
--- NOTE | 2017-12-20 10:34 | MR ---
EXAM DATE: 12/17/17 PATIENT'S AGE: 32 Patient: MELANIA FOY Facility: [place], [place] Site . Site : 1985 Study: MRI Abdomen W/ and W/O Cont [id number] 3:18:24 PM Ordering Physician: Jeaneth Murphy Final Report: INDICATION: SPLENIC CYST HISTORY: Splenic cyst. COMPARISON: CT of the abdomen and pelvis 12/17/2017. TECHNIQUE: Three plane localizer, axial T2 weighted with fat suppression, axial T1 weighted in and out of phase, axial diffusion-weighted imaging/ADC map, axial SSFP, coronal SSFP, and pre and post contrast axial/coronal T1 weighted fat- suppressed pulse sequences were obtained. FINDINGS: The dominant cystic splenic mass has no internal septa, contrast enhancement, or mural nodularity. The lesion measures 6.0 x 6.5 cm in AP and transverse dimensions. On coronal pulse sequences, it measures 6.1 cm in craniocaudad dimension. The differential diagnosis includes an acquired cyst due to prior trauma, infarction, or infection, or potentially congenital epidermoid cyst. This lesion appears hyperintense on the axial SSFP sequence. Lesion is hypo intense on T1 weighted imaging, and contains no intra voxel fat. There is diffuse hepatic steatosis noted. No dilation of intrahepatic biliary radicals. No perihepatic ascites. There are additional cystic lesions in the spleen, which also appear benign. For example, 15 mm lesion on series 1101, image 145. 9-10 mm lesion in the spleen on series 401, image 49. No adrenal mass. Symmetric nephrograms. No pancreatic mass. No pancreatic duct dilation. No glandular atrophy. The hepatic veins, portal vein and its branches, splenic vein, and SMV are patent. No abdominal lymphadenopathy. No pleural or pericardial effusion. Normal caliber biliary tree. Cholecystectomy. IMPRESSION: 1. Multiple, benign-appearing cystic lesions in the spleen. These demonstrate T2 shine through rather than restricted diffusion on the ADC map. 2. Differential diagnosis includes an acquired cyst or potentially a congenital epidermoid cyst. 3. Given the absence of internal contrast enhancement or solid component, conservative management is suggested. 4. Diffuse hepatic steatosis. Hepatic morphology is normal. 5. No abdominal lymphadenopathy. Dictated by Isma Medina MD @ 12/19/2017 3:45:24 PM Dictated by: Isma Medina MD @ 12/19/2017 15:45:45 (Electronic Signature) Report Signed by Proxy. [facility]
== END 2017-12-18 14:50 | disposition home or self-care (01) ==
LOC: MW.ED 01:55 → MW.MS 04:57
PROVIDERS: ADMIT Internal Medicine; ATTEND Internal Medicine
DX: R74.8 Abnormal levels of other serum enzymes (principal); R07.89 Other chest pain; D73.4 Cyst of spleen; M54.9 Dorsalgia, unspecified; E78.5 Hyperlipidemia, unspecified; E66.01 Morbid (severe) obesity due to excess calories; Z68.42 Body mass index [BMI] 45.0-49.9, adult; J45.909 Unspecified asthma, uncomplicated; F41.9 Anxiety disorder, unspecified; F32.9 Major depressive disorder, single episode, unspecified; F42.9 Obsessive-compulsive disorder, unspecified; Z79.84 Long term (current) use of oral hypoglycemic drugs; Z79.899 Other long term (current) drug therapy; Z98.890 Other specified postprocedural states; Z82.49 Family history of ischemic heart disease and other diseases of the circulatory system
CPT/HCPCS: 36415; 71045; 74177; 74183; 80048; 80053; 80061; 81001; 81025; 82962; 83690; 84484; 85025; 85027; 93005; 96361; 96374; 96375; 96376; 99285; A9270; C9113; G0378; J1170; J1956; J2060; J2270; J7040; Q9967

== ENCOUNTER 2018-07-01 17:30 | Emergency (ER) | payer MEDICAID, OTHER ==
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
[2018-07-01] MEDS ORDERED: traMADol 50 MG Tab PO ONE (18:10)
[2018-07-01 18:34] LABS: CHLORIDE,CL 106 mmol/L (98-107); SODIUM,NA 140 mmol/L (136-145)
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
[2018-07-01] MEDS ORDERED: Iopamidol 755 MG/ML 200 ML Multipack Bottle IVPUSH STA (19:10)
[2018-07-01 19:16] VITALS: BP 142/82
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
[2018-07-01] MEDS ORDERED: HYDROmorphone 2 MG/ML SDV IVPUSH ONE (19:55)
[2018-07-01] MEDS ORDERED: Ondansetron 4 MG/2 ML SDV IVPUSH ONE (20:03)
[2018-07-01] MEDS ORDERED: HYDROmorphone 1 MG/ML Syringe ONE (20:08)
[2018-07-01] MEDS ORDERED: HYDROmorphone 1 MG/ML Syringe IVPUSH ONE (20:10)
== END 2018-07-01 20:52 | disposition home or self-care (01) ==
LOC: MW.ED 17:30
DX: S99.912A Unspecified injury of left ankle, initial encounter (principal); R60.9 Edema, unspecified; R58 Hemorrhage, not elsewhere classified; M54.5 Low back pain; V89.2XXA Person injured in unspecified motor-vehicle accident, traffic, initial encounter
CPT/HCPCS: 36415; 70450; 72131; 73610; 74177; 80053; 81001; 84703; 85025; 93005; 96374; 96375; 99285; A9270; J1170; J2405; Q9967; 99284

== ENCOUNTER 2019-01-02 17:52 | Emergency (ER) | payer MEDICAID ==
--- NOTE | 2019-01-02 18:34 | EDM.PDOC ---
ED HPI GENERAL MEDICAL PROBLEM - General Chief Complaint: Eye Problems Stated Complaint: VISION NOT WELL Time Seen by Provider: 01/02/19 17:59 Source of Information: Reports: Patient History Limitations: Reports: No Limitations - History of Present Illness INITIAL COMMENTS - FREE TEXT/NARRATIVE: HISTORY AND PHYSICAL: History of present illness: Patient is a 33-year-old female who presents to the ED today with concern of change in vision episode. Patient states she was driving her vehicle when she had 2 circular areas and both of her eyes that were blurry in the central vision. Patient states that she had pulled over because she was having a difficulties with driving. Patient states on her right eye then her right side of her peripheral vision became black and she was unable to see except for centrally in that eye. Patient states when she got to the ED and checking and she was still having issues with the vision changes but as she got back to the exam room the symptoms disappeared. Patient states she does have a history of migraines but is not currently having a headache and she does not have migraines with aura. Patient states she has been sick with bronchitis and thigh provider yesterday and was put on azithromycin and given a inhaler. Patient denies fever, chills, chest pain, shortness of breath, or cough. Denies headache, neck stiff ness, syncope, or near syncope. Denies nausea, vomiting, abdominal pain, diarrhea, constipation, or dysuria. Has not noted any blood in urine or stool. Patient has been eating and drinking appropriately. Review of systems: As per history of present illness and below otherwise all systems reviewed and negative. Past medical history: As per history of present illness and as reviewed below otherwise noncontributory. Surgical history: As per history of present illness and as reviewed below otherwise noncontributory. Social history: See social history for further information Family history: As per history of present illness and as reviewed below otherwise noncontributory. Physical exam: General: Patient is alert, oriented, and in no acute distress. Patient sitting comfortably on exam table. HEENT: Atraumatic, normocephalic, pupils equal and reactive bilaterally, negative for conjunctival pallor or scleral icterus, mucous membranes moist, TMs normal bilaterally, throat clear, neck supple, nontender, trachea midline. No drooling or trismus noted. No meningeal signs. No hot potato voice noted. Lungs: Clear to auscultation, breath sounds equal bilaterally, chest nontender. Heart: S1S2, regular rate and rhythm without overt murmur Abdomen: Soft, nondistended, nontender. Negative for masses or hepatosplenomegaly. Negative for costovertebral tenderness. Pelvis: Stable nontender. Genitourinary: Deferred. Rectal: Deferred. Skin: Intact, warm, dry. No lesions or rashes noted. Extremities: Atraumatic, negative for cords or calf pain. Neurovascular unremarkable. Neuro: Awake, alert, oriented. Cranial nerves II through XII unremarkable. Cerebellum unremarkable. Motor and sensory unremarkable throughout. Exam nonfocal. Notes: Dr. Woodson verbally involved in patient care. Discussed the importance for follow-up with an rigger apprentice and her primary care provider/neurologist. Voices understanding and is agreeable to plan of care. Denies any further questions or concerns at this time. Diagnostics: CBC, CMP, UA, EKG, Head CT Therapeutics: duoneb Prescription: Medrol dose pack Impression: Visual disturbance r/o migraine equivalent Acute sinusitis Bronchitis Plan: 1. Follow up with the rigger apprentice and your neurologist/primary care provider as discussed. 2. Return to the ED as needed and as discussed. Finish your current antibiotics as prescribed. Definitive disposition and diagnosis as appropriate pending reevaluation and review of above. - Related Data Allergies Allergy/AdvReac Type Severity Reaction Status Date / Time No Known Allergies Allergy Verified 12/17/17 05:57 Home Meds: Home Meds ClonazePAM [KlonoPIN] 0.5 mg PO BEDTIME 02/06/17 [History] Past Medical History HEENT History: Reports: Other (See Below) Other HEENT History: sinus disease, rhinitis Cardiovascular History: Reports: None Respiratory History: Reports: Asthma Gastrointestinal History: Reports: GERD Genitourinary History: Reports: None TRAIN ANNOUNCER History: Reports: , Other (See Below) Other TRAIN ANNOUNCER History: PCOS Musculoskeletal History: Reports: None Neurological History: Reports: Migraines Psychiatric History: Reports: Anxiety, Depression, OCD Endocrine/Metabolic History: Reports: None, Obesity/BMI 30+ Hematologic History: Reports: None Immunologic History: Reports: None Oncologic (Cancer) History: Reports: None Dermatologic History: Reports: Eczema - Infectious Disease History Infectious Disease History: Reports: None - Past Surgical History HEENT Surgical History: Reports: Adenoidectomy, Tonsillectomy GI Surgical History: Reports: Cholecystectomy Female Surgical History: Reports: Section Social & Family History - Family History Family Medical History: Noncontributory - Caffeine Use Caffeine Use: Reports: Tea ED ROS GENERAL - Review of Systems Review Of Systems: ROS reveals no pertinent complaints other than HPI. ED EXAM GENERAL W FULL EYE - Physical Exam Exam: See Below (See dictation) Course - Vital Signs Last Recorded V/S: Last Vital Signs Temp 36.1 C 01/02/19 18:10 Pulse 83 01/02/19 18:10 Resp 16 01/02/19 18:10 BP 143/80 H 01/02/19 18:10 Pulse Ox 94 L 01/02/19 18:10 - Orders/Labs/Meds Orders: Active Orders 24 hr Category Date Time Status EKG Documentation Completion [RC] STAT Care 01/02/19 18:22 Active RT Aerosol Therapy [RC] ASDIRECTED Care 01/02/19 19:32 Active HCG QUALITATIVE,URINE [URCHEM] Stat Lab 01/02/19 19:29 Ordered Labs: Laboratory Tests 01/02/19 01/02/19 01/02/19 Range/Units 18:40 18:40 18:56 WBC 17.47 H (4.0-11.0) K/uL RBC 4.88 (4.30-5.90) M/uL Hgb 13.2 (12.0-16.0) g/dL Hct 40.3 (36.0-46.0) % MCV 82.6 (80.0-98.0) fL MCH 27.0 (27.0-32.0) pg MCHC 32.8 (31.0-37.0) g/dL RDW Std Deviation 46.6 (28.0-62.0) fl RDW Coeff of Nicole 16 H (11.0-15.0) % Plt Count 380 (150-400) K/uL MPV 9.70 (7.40-12.00) fL Neut % (Auto) 75.4 (48.0-80.0) % Lymph % (Auto) 18.6 (16.0-40.0) % [place] % (Auto) 5.5 (0.0-15.0) % Eos % (Auto) 0.3 (0.0-7.0) % Baso % (Auto) 0.2 (0.0-1.5) % Neut # (Auto) 13.2 H (1.4-5.7) K/uL Lymph # (Auto) 3.3 H (0.6-2.4) K/uL [place] # (Auto) 1.0 H (0.0-0.8) K/uL Eos # (Auto) 0.1 (0.0-0.7) K/uL Baso # (Auto) 0.0 (0.0-0.1) K/uL Nucleated RBC % 0.0 /100WBC Nucleated RBCs # 0 K/uL Sodium 143 (136-145) mmol/L Potassium 4.1 (3.5-5.1) mmol/L Chloride 104 (98-107) mmol/L Carbon Dioxide 25.8 (21.0-32.0) mmol/L BUN 19 H (7.0-18.0) mg/dL Creatinine 0.8 (0.6-1.0) mg/dL Est Cr Clr Drug Dosing 90.00 mL/min Estimated GFR (MDRD) > 60.0 ml/min Glucose 100 (74-106) mg/dL Calcium 9.8 (8.5-10.1) mg/dL Total Bilirubin 0.4 (0.2-1.0) mg/dL AST 24 (15-37) IU/L ALT 50 (14-63) IU/L Alkaline Phosphatase 71 (46-116) U/L Total Protein 7.3 (6.4-8.2) g/dL Albumin 3.4 (3.4-5.0) g/dL Globulin 3.9 (2.6-4.0) g/dL Albumin/Globulin Ratio 0.9 (0.9-1.6) Urine Color YELLOW Urine Appearance CLEAR Urine pH 5.5 (5.0-8.0) Ur Specific [place] >= 1.030 (1.001-1.035) Urine Protein NEGATIVE (NEGATIVE) mg/dL Urine Glucose (UA) NEGATIVE (NEGATIVE) mg/dL Urine Ketones NEGATIVE (NEGATIVE) mg/dL Urine Occult Blood NEGATIVE (NEGATIVE) Urine Nitrite NEGATIVE (NEGATIVE) Urine Bilirubin NEGATIVE (NEGATIVE) Urine Urobilinogen 0.2 (<2.0) EU/dL Ur Leukocyte Esterase NEGATIVE (NEGATIVE) Urine RBC 0-2 (0-2/HPF) Urine WBC 0-3 (0-5/HPF) Ur Squamous Epith Cells OCCASIONAL Urine Bacteria FEW (NEGATIVE) Urine Mucus MODERATE (NONE-MOD) Meds: Medications Discontinued Medications Generic Name Dose Route Start Last Admin Trade Name Erastoq PRN Reason Stop Dose Admin Albuterol/Ipratropium 3 ml 01/02/19 19:32 01/02/19 19:36 Duoneb 3.0-0.5 Mg/3 Ml NEB 01/02/19 19:33 3 ml ONETIME ONE Administration Departure - Departure Time of Disposition: 19:49 Disposition: Home, Self-Care 01 Clinical Impression: Visual disturbance, Bronchitis Acute sinusitis Qualifiers: Sinusitis location: maxillary Recurrence: not specified as recurrent Qualified Code(s): J01.00 - Acute maxillary sinusitis, unspecified - Discharge Information Referrals: PCP,Unknown [Primary Care Provider] - Forms: ED Department Discharge Additional Instructions: The following information is given to patients seen in the emergency department who are being discharged to home. This information is to outline your options for follow-up care. We provide all patients seen in our emergency department with a follow-up referral. The need for follow-up, as well as the timing and circumstances, are variable depending upon the specifics of your emergency department visit. If you don't have a primary care physician on staff, we will provide you with a referral. We always advise you to contact your personal physician following an emergency department visit to inform them of the circumstance of the visit and for follow-up with them and/or the need for any referrals to a consulting specialist. The emergency department will also refer you to a specialist when appropriate. This referral assures that you have the opportunity for follow-up care with a specialist. All of these measure are taken in an effort to provide you with optimal care, which includes your follow-up. Under all circumstances we always encourage you to contact your private physician who remains a resource for coordinating your care. When calling for follow-up care, please make the office aware that this follow-up is from your recent emergency room visit. If for any reason you are refused follow-up, please contact the [facility] Emergency Department at and asked to speak to the emergency department charge nurse. [facility] [address] [place] [address] [facility] [address] [place] [id number] 1. Follow up with the rigger apprentice and your neurologist/primary care provider as discussed. 2. Return to the ED as needed and as discussed. Finish your current antibiotics as prescribed. Take medication as prescribed. - My Orders Last 24 Hours: My Active Orders 01/02/19 18:22 EKG Documentation Completion [RC] STAT 01/02/19 19:29 HCG QUALITATIVE,URINE [URCHEM] Stat 01/02/19 19:32 RT Aerosol Therapy [RC] ASDIRECTED - Assessment/Plan Last 24 Hours: My Active Orders 01/02/19 18:22 EKG Documentation Completion [RC] STAT 01/02/19 19:29 HCG QUALITATIVE,URINE [URCHEM] Stat 01/02/19 19:32 RT Aerosol Therapy [RC] ASDIRECTED
[2019-01-02 19:29] LABS: BLOOD UREA NITROGEN,BUN 19 mg/dL (7.0-18.0); CARBON DIOXIDE,CO2 25.8 mmol/L (21.0-32.0); CHLORIDE,CL 104 mmol/L (98-107); GLUCOSE RANDOM 100 mg/dL (74-106); POTASSIUM,K 4.1 mmol/L (3.5-5.1); SODIUM,NA 143 mmol/L (136-145)
--- NOTE | 2019-01-02 19:32 | CT ---
INDICATION: Pain. Blurred vision to right eye 30 minutes ago. TECHNIQUE: CT head without IV contrast. COMPARISON: CT head 07/01/2018. FINDINGS: Moderately prominent diffuse pansinusitis with fluid mucosal thickening and the paranasal sinuses bilaterally and diffusely is more prominent than on 07/01/2018. Scattered hyperdensity within the sinuses could be related to dense mucus or if there has been recent trauma could also be posttraumatic and related to blood products. No intracranial hemorrhage, edema, or mass effect. Remainder negative. IMPRESSION: 1. Moderately prominent pansinusitis has increased since 07/01/2018 and should have an acute component. Hyperdensity in the paranasal sinuses could be related to dense mucus or there has been trauma blood products. 2. No acute intracranial disease. Please note that all CT scans at this facility use dose modulation, iterative reconstruction, and/or weight-based dosing when appropriate to reduce radiation dose to as low as reasonably achievable. Dictated by Tim Noble MD @ Jan 02 2019 7:30PM Signed by Dr. Tim Noble @ Jan 02 2019 7:30PM
[2019-01-02] MEDS: Albuterol/Ipratropium 3.0-0.5 MG/3 ML Neb Soln NEB ONE (19:36)
--- NOTE | 2019-01-02 19:39 | CR ---
INDICATION: Shortness of breath TECHNIQUE: Chest 2 views COMPARISON: December 17, 2017 FINDINGS: Cardiovascular and mediastinum: Heart size and vasculature are normal in caliber and appearance. Lungs and pleural spaces: Lungs are clear. No sign of infiltrate or mass. No sign of pleural effusion. No pneumothorax. Bones and soft tissues: No significant findings. IMPRESSION: No acute findings and no significant changes from the prior exam. Dictated by Brien Farley MD @ Jan 02 2019 7:35PM Signed by Dr. Brien Farley @ Jan 02 2019 7:36PM
[2019-01-02 20:00] VITALS: BP 123/70
== END 2019-01-02 19:58 | disposition home or self-care (01) ==
LOC: MW.ED 17:52
DX: J40 Bronchitis, not specified as acute or chronic (principal); J01.00 Acute maxillary sinusitis, unspecified; H53.9 Unspecified visual disturbance; E66.9 Obesity, unspecified; Z90.49 Acquired absence of other specified parts of digestive tract
CPT/HCPCS: 36415; 70450; 70450-26; 71046; 71046-26; 80053; 81001; 85025; 93005; 94640; 99284-25; J7620-GY

== ENCOUNTER 2019-05-07 08:46 | Day surgery (SDC) | payer MEDICAID ==
[~2019-05-07 08:46] MED LIST: Lactated Ringers 1,000 ML IV SCH; Midazolam 1 MG/ML 2 ML SDV ONE; Ondansetron 4 MG/2 ML SDV ONE; Propofol 200 MG/20 ML SDV ONE; Sodium Chloride 0.9% 10 ML SDV IV PRN; Sodium Chloride 0.9% 10 ML Syringe FLUSH PRN; Sodium Chloride 0.9% 2.5 ML Syringe FLUSH PRN; fentaNYL 100 MCG/2 ML SDV ONE
--- NOTE | 2019-05-07 09:24 | PCM.PREANE ---
Preanesthetic Assessment - Anesthesia/Transfusion/Family Hx Anesthesia History: Prior Anesthesia Without Reaction Other Type of Anesthesia Reaction Comment: "I wake up emotional" Family History of Anesthesia Reaction: No Transfusion History: No Prior Transfusion(s) - Review of Systems General: No Symptoms Pulmonary: No Symptoms Cardiovascular: No Symptoms Neurological: No Symptoms Other: Reports: None - Physical Assessment NPO Status Date: 05/07/19 NPO Status Time: 07:00 Vital Signs: Last Vital Signs Temp 96.1 F 05/07/19 09:03 Pulse 92 05/07/19 09:03 Resp 18 05/07/19 09:03 BP 138/80 05/07/19 09:03 Pulse Ox 99 05/07/19 09:03 Height: 5 ft 4 in Weight: 131.995 kg ASA Class: 3 Mental Status: Alert & Oriented x3 Airway Class: Mallampati = 2 Dentition: Reports: Normal Dentition ROM/Head Extension: Full Lungs: Clear to Auscultation, Normal Respiratory Effort Cardiovascular: Regular Rate, Regular Rhythm - Allergies Allergies/Adverse Reactions: Allergies Allergy/AdvReac Type Severity Reaction Status Date / Time No Known Allergies Allergy Verified 05/02/19 10:06 - Blood Blood Available: No - Anesthesia Plan Pre-Op Medication Ordered: None - Acknowledgements Anesthesia Type Planned: General Anesthesia Pt an Appropriate Candidate for the Planned Anesthesia: Yes Alternatives and Risks of Anesthesia Discussed w Pt/Guardian: Yes Pt/Guardian Understands and Agrees with Anesthesia Plan: Yes Additional Comments: PMH: tested for TANYA-not found on sleep study, IBS, super morbid obesity with BMI =50, PCOS, ADHD on concerta/not ritaliin, bronchospasm with cig smoke- no use of inhalers or oral steroids for several months, on inderal for mighraines, PLAN: tiva, avoid narcotics and benzos PreAnesthesia Questionnaire HEENT History: Reports: Allergic Rhinitis, Other (See Below) Other HEENT History: wears glasses/contacts Cardiovascular History: Reports: None Respiratory History: Reports: Asthma Other Respiratory History: childhood asthma, denies having prescribed inhaler Gastrointestinal History: Reports: GERD, Irritable Bowel Syndrome, Pancreatitis Genitourinary History: Reports: None 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 History: Reports: Endometriosis, Polycystic Ovaries, Musculoskeletal History: Reports: Other (See Below) Other Musculoskeletal History: joint pain, possible arthritis or fibromyalgis "were working on that" Neurological History: Reports: Migraines Psychiatric History: Reports: ADHD, Anxiety, Depression, OCD, PTSD Endocrine/Metabolic History: Reports: Obesity/BMI 30+ Hematologic History: Reports: None Immunologic History: Reports: None Oncologic (Cancer) History: Reports: None Dermatologic History: Reports: Eczema - Infectious Disease History Infectious Disease History: Reports: None - Past Surgical History Head Surgeries/Procedures: Reports: None HEENT Surgical History: Reports: Adenoidectomy, Tonsillectomy Cardiovascular Surgical History: Reports: None Respiratory Surgical History: Reports: None GI Surgical History: Reports: Cholecystectomy Female Surgical History: Reports: Section, Other (See Below) Other Female Surgeries/Procedures: laparoscopy for endometriosis Endocrine Surgical History: Reports: None Neurological Surgical History: Reports: None Musculoskeletal Surgical History: Reports: None Oncologic Surgical History: Reports: None Dermatological Surgical History: Reports: None - SUBSTANCE USE Smoking Status *Q: Never Smoker - HOME MEDS Home Medications: Home Meds ClonazePAM [KlonoPIN] 0.5 mg PO ASDIRECTED PRN 02/06/17 [History] Cholecalciferol (Vitamin D3) [Vitamin D3] 1 tab PO ASDIRECTED 05/02/19 [History] DULoxetine HCl [Duloxetine HCl] 120 mg PO DAILY 05/02/19 [History] Fluticasone Propionate [Allergy Relief] 1 spray NASBOTH DAILY 05/02/19 [History] Methylphenidate HCl [Methylphenidate ER] 36 mg PO DAILY 05/02/19 [History] Omeprazole 20 mg PO DAILY 05/02/19 [History] Propranolol HCl 40 mg PO BID 05/02/19 [History] SUMAtriptan Succinate [Imitrex] 50 mg PO ASDIRECTED PRN 05/02/19 [History] metFORMIN HCl [Metformin HCl] 1,000 mg PO DAILY 05/02/19 [History] - CURRENT (IN HOUSE) MEDS Current Meds: Current Medications Lactated Ringer's (Ringers, Lactated) 1,000 mls @ 125 mls/hr IV ASDIRECTED MOODY Last Admin: 05/07/19 09:13 Dose: 125 mls/hr Sodium Chloride (Saline Flush) 10 ml FLUSH ASDIRECTED PRN PRN Reason: Keep Vein Open Sodium Chloride (Saline Flush) 2.5 ml FLUSH ASDIRECTED PRN PRN Reason: Keep Vein Open Sodium Chloride (Normal Saline) 10 ml IV ASDIRECTED PRN PRN Reason: IV Use Discontinued Medications Fentanyl (Sublimaze) Confirm Administered Dose 100 mcg .ROUTE .STK-MED ONE Stop: 05/07/19 07:20 Lidocaine HCl (Xylocaine-Mpf 1%) Confirm Administered Dose 5 ml .ROUTE .STK-MED ONE Stop: 05/07/19 07:19 Midazolam HCl (Versed 1 Mg/Ml) Confirm Administered Dose 2 mg .ROUTE .STK-MED ONE Stop: 05/07/19 07:20 Ondansetron HCl (Zofran) Confirm Administered Dose 4 mg .ROUTE .STK-MED ONE Stop: 05/07/19 07:19 Propofol (Diprivan 20 Ml) Confirm Administered Dose 200 mg .ROUTE .STK-MED ONE Stop: 05/07/19 07:20
--- NOTE | 2019-05-07 11:52 | PCM.OPNOTE ---
- General Post-Op/Procedure Note Date of Surgery/Procedure: 05/07/19 Operative Procedure(s): Diagnostic EGD Findings: Normal EGD Pre Op Diagnosis: Epigastric pain Post-Op Diagnosis: same Anesthesia Technique: MAC Primary Surgeon: Loree Schroeder Condition: Good
--- NOTE | 2019-05-07 12:00 | PCM.POSTAN ---
POST ANESTHESIA ASSESSMENT - MENTAL STATUS Mental Status: Alert - VITAL SIGNS Vital Signs: Last Vital Signs Temp 35.6 C 05/07/19 11:51 Pulse 78 05/07/19 11:51 Resp 16 05/07/19 11:51 BP 105/74 05/07/19 11:51 Pulse Ox 96 05/07/19 11:51 - RESPIRATORY Respiratory Status: Respiratory Rate WNL - CARDIOVASCULAR CV Status: Pulse Rate WNL - GASTROINTESTINAL GI Status: No Symptoms - PAIN Pain Score: 1 (Epigastric ache) - POST OP HYDRATION Hydration Status: Adequate & Stable (Direct transfer to Day Surgery)
[2019-05-07 12:12] VITALS: BP 116/70; PULSE 77
--- NOTE | 2019-05-07 12:16 | PCM48HPAN ---
Post Anesthesia Note - EVALUATION WITHIN 48HRS OF ANESTHETIC Vital Signs in Normal Range: Yes Patient Participated in Evaluation: Yes Respiratory Function Stable: Yes Airway Patent: Yes Cardiovascular Function Stable: Yes Hydration Status Stable: Yes Pain Control Satisfactory: Yes Nausea and Vomiting Control Satisfactory: Yes Mental Status Recovered: Yes Vital Signs: Last Vital Signs Temp 35.6 C 05/07/19 11:51 Pulse 77 05/07/19 12:12 Resp 16 05/07/19 12:12 BP 116/70 05/07/19 12:12 Pulse Ox 96 05/07/19 12:12
--- NOTE | 2019-05-08 18:45 | OR ---
SURGEON: LOREE SCHROEDER MD DATE OF PROCEDURE: 05/07/2019 PREOPERATIVE DIAGNOSIS: Epigastric pain. POSTOPERATIVE DIAGNOSIS: Gastroesophageal reflux disease. PROCEDURE PERFORMED: Diagnostic esophagogastroduodenoscopy with biopsy. PRIMARY SURGEON: Loree Schroeder MD. ANESTHESIA: MAC. INSTRUMENT USED: Olympus endoscope. EXTENT OF EXAM: To the second portion of duodenum. PREPARATION: Good. LIMITATIONS: None. INDICATIONS FOR EXAMINATION: The patient is a 34-year-old female who presents with chronic epigastric pain. I placed her on omeprazole, which she has now been taking reliably. When I visited with her in the preoperative area, she states that her symptoms have improved significantly. I explained the need for an EGD with biopsies. She verbalized understanding and wishes to proceed. PROCEDURE IN DETAIL: The patient was brought into the endoscopy suite and placed in a beach chair position. A time-out was completed verifying the patient's name, age, date of , allergies, and procedure to be performed. A bite block was placed in the patient's mouth and monitored anesthesia care was induced. Continuous oxygen was provided via nasal cannula throughout the procedure. After adequate sedation was achieved, a well-lubricated endoscope was placed in the patient's mouth and advanced under direct visualization to the second portion of duodenum. This appeared normal and a photograph was taken. The scope was then fully withdrawn while examining the color, texture, anatomy, and integrity of the mucosa of the upper GI tract. The duodenum appeared normal. A biopsy was taken of the duodenal bulb using cold biopsy forceps. The scope was brought into the stomach, a photograph was taken of the pylorus and GE junction which appeared structurally normal. There was no evidence of gross inflammation or ulceration. Biopsies were taken of the gastric antrum, body, and fundus and sent for histologic review and H. pylori testing. The scope was then brought into the distal esophagus. A photograph was taken of the Z-line which appeared normal. A biopsy was taken of the distal esophageal mucosa 1 cm above the Z-line. The remainder of the esophagus was free of pathology. The scope was removed and the procedure terminated. The patient tolerated the procedure well and was transferred to the PACU in stable condition. ENDOSCOPIC DIAGNOSIS: Gastroesophageal reflux disease. RECOMMENDATIONS: We will follow up in clinic in 2 weeks to review the biopsy results and the next steps in treatment. LEANA MESSER /[id number]
== END 2019-05-07 12:28 | disposition home or self-care (01) ==
LOC: MW.SDS 08:46
PROVIDERS: ATTEND Surgery
DX: K21.0 Gastro-esophageal reflux disease with esophagitis (principal); K29.50 Unspecified chronic gastritis without bleeding; K42.9 Umbilical hernia without obstruction or gangrene; F32.9 Major depressive disorder, single episode, unspecified; F41.9 Anxiety disorder, unspecified; G43.909 Migraine, unspecified, not intractable, without status migrainosus; G47.30 Sleep apnea, unspecified; J45.909 Unspecified asthma, uncomplicated; E66.01 Morbid (severe) obesity due to excess calories; Z68.42 Body mass index [BMI] 45.0-49.9, adult; Z79.51 Long term (current) use of inhaled steroids; Z79.899 Other long term (current) drug therapy
CPT/HCPCS: 43239; 81025; J2001; J2250; J2405; J2704; J3010; J7120

== ENCOUNTER 2019-07-02 14:40 | Emergency (ER) | payer MEDICAID ==
[2019-07-02] MEDS ORDERED: Sodium Chloride 0.9% 1,000 ML IV ONE ×2 (14:47→16:54)
[2019-07-02] MEDS ORDERED: Iopamidol 755 MG/ML 500 ML Multipack Bottle IVPUSH STA (15:12)
--- NOTE | 2019-07-02 15:26 | CT ---
Head CT Technique: Multiple axial sections through the brain were obtained. Study was obtained without and with intravenous contrast) Comparison: Prior head CT study of 01/02/19. Findings: Ventricles along with basal cisterns and sulci over convexities are within normal limits for the patient's age. No abnormal parenchymal densities are seen. No evidence of intracranial hemorrhage. No midline shift or mass effect is seen. No abnormal areas of enhancement are seen. Fairly severe areas of mucosal thickening is seen within both maxillary sinuses and ethmoid sinuses as well as left sphenoid sinus and right frontal sinus. Mastoid sinuses are clear. No acute calvarial abnormality is appreciated. Impression: 1. Pansinusitis. Findings are fairly stable from previous exam. 2. No acute intracranial abnormality is seen. Diagnostic code #3 Study was dictated in [place] Standard Time
[2019-07-02 15:35] LABS: BLOOD UREA NITROGEN,BUN 21 mg/dL (7.0-18.0); CARBON DIOXIDE,CO2 28.7 mmol/L (21.0-32.0); CHLORIDE,CL 101 mmol/L (98-107); GLUCOSE RANDOM 93 mg/dL (74-106); POTASSIUM,K 4.2 mmol/L (3.5-5.1); SODIUM,NA 138 mmol/L (136-145)
--- NOTE | 2019-07-02 15:36 | CR ---
Chest: Portable view of the chest was obtained. Comparison: Prior chest x-ray of 01/02/19. Heart size and mediastinum are normal. Lungs are clear. Bony structures are unremarkable for the patient's age. Impression: 1. Nothing acute is seen on portable chest x-ray. Diagnostic code #1 This report was dictated in [place] Standard Time
[2019-07-02] MEDS ORDERED: Ketorolac 30 MG/ML SDV IVPUSH ONE (17:12)
[2019-07-02] MEDS ORDERED: Acetaminophen 500 MG Tab PO ONE (17:12)
[2019-07-02] MEDS ORDERED: Meclizine 25 MG Tab PO ONE (17:37)
[2019-07-02] MEDS ORDERED: Pseudoephedrine 30 MG Tab PO ONE ×2 (17:38→18:00)
[2019-07-02] MEDS ORDERED: Amoxicillin/Clavulanate K 875-125 MG Tab PO ONE (17:38)
[2019-07-02] MEDS ORDERED: Oxymetazoline 0.05% Nasal Spray 15 ML Bottle NASBOTH ONE (17:38)
--- NOTE | 2019-07-02 18:51 | EDM.PDOC ---
ED HPI GENERAL MEDICAL PROBLEM - General Chief Complaint: Syncope Stated Complaint: DIZZY,NAUSEA Time Seen by Provider: 07/02/19 18:46 - History of Present Illness INITIAL COMMENTS - FREE TEXT/NARRATIVE: HPI 34-year-old morbidly obese female on POD 6 from a sinus surgery presents for evaluation of sudden onset weakness and syncope/presyncope that occurred while she was at [facility], patient now with mild ongoing persistent confusion. Patient has reportedly had an unremarkable postoperative course. No apparent fevers, chills, headache, neck stiffness, changes in vision or hearing. M/S/F/SocHx notable for: please see HPI; remainder reviewed with patient and in chart. ROS: Negative constitutional, eye, cardiovascular, pulmonary, GI, , MSK, skin , neurologic, psychiatric, endocrine unless noted in the HPI. Exam HR 96, RR (pending), BP 153/94, T 36.4C, SaO2 98 % on room air. Gen: Pleasant, non-toxic appearing, resting comfortably. HEENT: NC, AT, PEERL, EOMI. Resp: Clear to auscultation bilaterally, normal work of breathing, no accessory muscle usage. Card: Regular rate and rhythm with no murmurs, rubs, or gallops, extremities warm and well perfused. GI: Non-tender to palpation throughout all quadrants, no focal tenderness at McBurney's point, negative Gallardo's sign, non-distended, no rebound or guarding. : No suprapubic tenderness to palpation. MSK: No visible deformities, strength and tone without visually appreciable deficit. Skin: Normal color with no visible lesions. Neuro: alert and oriented 3, no facial asymmetry, vision and hearing WNL. Psych: Mood and affect appropriate. Labs / Imaging: CT head: 1. Pansinusitis. Findings are stable from previous exam. 2. No acute intracranial abnormality seen. EKG: SR at [address]-segment elevations or depressions, T-wave inversions or new LBBB. MA interval 122 msec, QTc 441 msec, no delta waves, epsilon waves, coved or saddle ST-segment changes in leads V1-3, preseptal or inferior lead Q-waves, biphasic P-waves, or T-wave inversions; no LVH. CXR: No acute cardiopulmonary disease process. No focal infiltrate, cardiomegaly , rib fractures, or mediastinal widening, lung markings extend to the periphery bilaterally and there are no deep sulci. Radiologist's read pending. WBC 11.98, HB 13.7, Na 138, K 4.2, Cr 1.1, troponin < 0.050, TSH 3.47. D-dimer 0.26 ESR 2, CRP 4.4 hCG negative MDM Previous chart, nursing note, labs, imaging, and vitals reviewed. A: 34-year-old morbidly obese female on POD 6 from a sinus surgery presents for evaluation of sudden onset weakness and syncope/presyncope that occurred while she was at [facility], patient now with mild ongoing persistent confusion. Evaluation: patient has a broad and concerning differential, however based on the totality the patients history (some obtained later in the ED course), and the relative exclusion of the remainder the differential suspect that the patient was feeling lightheaded and vertiginous symptoms secondary to dehydration and decreased PO intake in the setting of ongoing sinusitis. Patient noted after IV fluids and rest in the emergency department that she had been taking p.o. poorly over last 2 to 3 days due to feeling mildly unwell, when standing the patient feel lightheaded and vertiginous, upon resting her symptoms would somewhat improve. The patient endorses mild, nonspecific poorly characterized malaise and fogginess without any further symptoms. As she is nasally phonation, pansinusitis, and no focal neuro deficits as well as CT head (w/ and w/o) contrast as well as a negative d-dimer there is no clear evidence of GIS PHYSICAL SCIENTIST abscess, GIS PHYSICAL SCIENTIST thrombosis, and there are no clinical features consistent with meningitis or encephalitis. Patient is a nonischemic ECG without features suggestive of arrhythmia, or further conduction abnormality. She has a low pretest probability (Wells score 1.5 as below), given the negative d-dimer PE rule out is appropriately risk ratified. Electrolytes are within normal limits as is TSH, troponin is negative , there are no features of pericarditis, myocarditis, ACS. Negative hCG, no anemia. While there is mild leukocytosis and minimal CRP elevation, this may be secondary to her recent procedure or represent a mild nonspecific infection such as her pansinusitis. Vital signs remained stable and within normal limits, with rest, 1 L IV fluids ( 2nd request by patient), meclizine, and nasal decongestants patient resolution of symptoms. Given the absence of fever or worrisome findings on history, exam, or ED course as well as the patients relatively stable clinical trajectory over last several days she remains appropriate for outpatient care. Patient was prescribed Augmentin for treatment of her sinusitis and meclizine for her vertiginous symptoms. Patient was discharged with PCP follow-up recommended. Impression: vertigo, presyncope, sinusitis (please reference below for remainder of encounter information) Eric' (Signs & Sx of DVT - 0, PE is #1 or equally likelihood - 0, HR > 100 - 0 , immobilization of >=3 days or surgery in last 28 days - 1.5, prior DVT or PE - 0, hemoptysis - 0, malignancy w/ tx in last 6 mo or palliative - 0). - Related Data Allergies Allergy/AdvReac Type Severity Reaction Status Date / Time No Known Allergies Allergy Verified 07/02/19 14:47 Home Meds: Home Meds ClonazePAM [KlonoPIN] 0.5 mg PO ASDIRECTED PRN 02/06/17 [History] Cholecalciferol (Vitamin D3) [Vitamin D3] 1 tab PO ASDIRECTED 05/02/19 [History] DULoxetine HCl [Duloxetine HCl] 120 mg PO DAILY 05/02/19 [History] Fluticasone Propionate [Allergy Relief] 1 spray NASBOTH DAILY 05/02/19 [History] Methylphenidate HCl [Methylphenidate ER] 36 mg PO DAILY 05/02/19 [History] Omeprazole 20 mg PO DAILY 05/02/19 [History] Propranolol HCl 40 mg PO BID 05/02/19 [History] SUMAtriptan Succinate [Imitrex] 50 mg PO ASDIRECTED PRN 05/02/19 [History] metFORMIN HCl [Metformin HCl] 1,000 mg PO DAILY 05/02/19 [History] Amoxicillin/Potassium Clav [Augmentin 875-125 Tablet] 1 each PO BID #20 tablet 07/02/19 [Rx] Meclizine HCl 25 mg PO Q6H PRN #10 tablet 07/02/19 [Rx] Past Medical History HEENT History: Reports: Allergic Rhinitis, Other (See Below) Other HEENT History: wears glasses/contacts Cardiovascular History: Reports: None Respiratory History: Reports: Asthma Other Respiratory History: childhood asthma, denies having prescribed inhaler Gastrointestinal History: Reports: GERD, Irritable Bowel Syndrome, Pancreatitis Genitourinary History: Reports: None RN NURSERY History: Reports: Endometriosis, Polycystic Ovaries, Musculoskeletal History: Reports: Other (See Below) Other Musculoskeletal History: joint pain, possible arthritis or fibromyalgis "were working on that" Neurological History: Reports: Migraines Psychiatric History: Reports: ADHD, Anxiety, Depression, OCD, PTSD Endocrine/Metabolic History: Reports: Obesity/BMI 30+ Hematologic History: Reports: None Immunologic History: Reports: None Oncologic (Cancer) History: Reports: None Dermatologic History: Reports: Eczema - Infectious Disease History Infectious Disease History: Reports: Chicken Pox - Past Surgical History Head Surgeries/Procedures: Reports: None HEENT Surgical History: Reports: Adenoidectomy, Naso-Sinus Surgery, Tonsillectomy Cardiovascular Surgical History: Reports: None Respiratory Surgical History: Reports: None GI Surgical History: Reports: Cholecystectomy Female Surgical History: Reports: Section, Other (See Below) Other Female Surgeries/Procedures: laparoscopy for endometriosis Endocrine Surgical History: Reports: None Neurological Surgical History: Reports: None Musculoskeletal Surgical History: Reports: None Oncologic Surgical History: Reports: None Dermatological Surgical History: Reports: None Social & Family History - Family History Family Medical History: Noncontributory - Tobacco Use Smoking Status *Q: Never Smoker - Caffeine Use Caffeine Use: Reports: Tea - Recreational Drug Use Recreational Drug Use: No ED ROS GENERAL - Review of Systems Review Of Systems: See Below ED EXAM, GENERAL - Physical Exam Exam: See Below Course - Vital Signs Last Recorded V/S: Last Vital Signs Temp 36.4 C 07/02/19 17:38 Pulse 90 07/02/19 17:16 Resp 33 H 07/02/19 14:48 BP 145/92 H 07/02/19 17:16 Pulse Ox 100 07/02/19 17:16 - Orders/Labs/Meds Orders: Active Orders 24 hr Category Date Time Status Blood Glucose Check, Bedside [RC] ONETIME Care 07/02/19 14:47 Active EKG 12 Lead [EKG Documentation Completion] [RC] STAT Care 07/02/19 15:07 Active UA W/LISETTE RFLX IF INDICATED [URIN] Stat Lab 07/02/19 15:49 Received Labs: Laboratory Tests 07/02/19 07/02/19 07/02/19 Range/Units 14:45 14:45 14:45 WBC 11.98 H (4.0-11.0) K/uL RBC 5.18 (4.30-5.90) M/uL Hgb 13.7 (12.0-16.0) g/dL Hct 42.7 (36.0-46.0) % MCV 82.4 (80.0-98.0) fL MCH 26.4 L (27.0-32.0) pg MCHC 32.1 (31.0-37.0) g/dL RDW Std Deviation 48.3 (28.0-62.0) fl RDW Coeff of Nicole 16 H (11.0-15.0) % Plt Count 497 H (150-400) K/uL MPV 9.50 (7.40-12.00) fL Neut % (Auto) 64.0 (48.0-80.0) % Lymph % (Auto) 29.9 (16.0-40.0) % Flagler % (Auto) 5.1 (0.0-15.0) % Eos % (Auto) 0.8 (0.0-7.0) % Baso % (Auto) 0.2 (0.0-1.5) % Neut # (Auto) 7.7 H (1.4-5.7) K/uL Lymph # (Auto) 3.6 H (0.6-2.4) K/uL Flagler # (Auto) 0.6 (0.0-0.8) K/uL Eos # (Auto) 0.1 (0.0-0.7) K/uL Baso # (Auto) 0.0 (0.0-0.1) K/uL Nucleated RBC % 0.0 /100WBC Nucleated RBCs # 0 K/uL ESR (0-19) mm/hr D-Dimer, Quantitative (0.0-0.50) mg/L FEU Sodium 138 (136-145) mmol/L Potassium 4.2 (3.5-5.1) mmol/L Chloride 101 (98-107) mmol/L Carbon Dioxide 28.7 (21.0-32.0) mmol/L BUN 21 H (7.0-18.0) mg/dL Creatinine 1.1 H (0.6-1.0) mg/dL Est Cr Clr Drug Dosing 64.84 mL/min Estimated GFR (MDRD) 56.9 ml/min Glucose 93 (74-106) mg/dL Calcium 10.2 H (8.5-10.1) mg/dL Troponin I < 0.050 (0.000-0.056) ng/mL C-Reactive Protein (0.00-0.90) mg/dL TSH 3rd Generation 3.47 (0.36-3.74) uIU/mL HCG, Qual NEGATIVE (NEG) Urine Opiates Screen (NEGATIVE) Ur Oxycodone Screen (NEGATIVE) Urine Methadone Screen (NEGATIVE) Ur Barbiturates Screen (NEGATIVE) Ur Phencyclidine Scrn (NEGATIVE) Ur Amphetamine Screen (NEGATIVE) U Methamphetamines Scrn (NEGATIVE) U Benzodiazepines Scrn (NEGATIVE) U Cocaine Metab Screen (NEGATIVE) U Marijuana (THC) Screen (NEGATIVE) 07/02/19 07/02/19 07/02/19 Range/Units 14:45 14:45 14:45 WBC (4.0-11.0) K/uL RBC (4.30-5.90) M/uL Hgb (12.0-16.0) g/dL Hct (36.0-46.0) % MCV (80.0-98.0) fL MCH (27.0-32.0) pg MCHC (31.0-37.0) g/dL RDW Std Deviation (28.0-62.0) fl RDW Coeff of Nicole (11.0-15.0) % Plt Count (150-400) K/uL MPV (7.40-12.00) fL Neut % (Auto) (48.0-80.0) % Lymph % (Auto) (16.0-40.0) % Flagler % (Auto) (0.0-15.0) % Eos % (Auto) (0.0-7.0) % Baso % (Auto) (0.0-1.5) % Neut # (Auto) (1.4-5.7) K/uL Lymph # (Auto) (0.6-2.4) K/uL Flagler # (Auto) (0.0-0.8) K/uL Eos # (Auto) (0.0-0.7) K/uL Baso # (Auto) (0.0-0.1) K/uL Nucleated RBC % /100WBC Nucleated RBCs # K/uL ESR 2 (0-19) mm/hr D-Dimer, Quantitative 0.26 (0.0-0.50) mg/L FEU Sodium (136-145) mmol/L Potassium (3.5-5.1) mmol/L Chloride (98-107) mmol/L Carbon Dioxide (21.0-32.0) mmol/L BUN (7.0-18.0) mg/dL Creatinine (0.6-1.0) mg/dL Est Cr Clr Drug Dosing mL/min Estimated GFR (MDRD) ml/min Glucose (74-106) mg/dL Calcium (8.5-10.1) mg/dL Troponin I (0.000-0.056) ng/mL C-Reactive Protein 4.40 H (0.00-0.90) mg/dL TSH 3rd Generation (0.36-3.74) uIU/mL HCG, Qual (NEG) Urine Opiates Screen (NEGATIVE) Ur Oxycodone Screen (NEGATIVE) Urine Methadone Screen (NEGATIVE) Ur Barbiturates Screen (NEGATIVE) Ur Phencyclidine Scrn (NEGATIVE) Ur Amphetamine Screen (NEGATIVE) U Methamphetamines Scrn (NEGATIVE) U Benzodiazepines Scrn (NEGATIVE) U Cocaine Metab Screen (NEGATIVE) U Marijuana (THC) Screen (NEGATIVE) 07/02/19 Range/Units 14:48 WBC (4.0-11.0) K/uL RBC (4.30-5.90) M/uL Hgb (12.0-16.0) g/dL Hct (36.0-46.0) % MCV (80.0-98.0) fL MCH (27.0-32.0) pg MCHC (31.0-37.0) g/dL RDW Std Deviation (28.0-62.0) fl RDW Coeff of Nicole (11.0-15.0) % Plt Count (150-400) K/uL MPV (7.40-12.00) fL Neut % (Auto) (48.0-80.0) % Lymph % (Auto) (16.0-40.0) % Flagler % (Auto) (0.0-15.0) % Eos % (Auto) (0.0-7.0) % Baso % (Auto) (0.0-1.5) % Neut # (Auto) (1.4-5.7) K/uL Lymph # (Auto) (0.6-2.4) K/uL Flagler # (Auto) (0.0-0.8) K/uL Eos # (Auto) (0.0-0.7) K/uL Baso # (Auto) (0.0-0.1) K/uL Nucleated RBC % /100WBC Nucleated RBCs # K/uL ESR (0-19) mm/hr D-Dimer, Quantitative (0.0-0.50) mg/L FEU Sodium (136-145) mmol/L Potassium (3.5-5.1) mmol/L Chloride (98-107) mmol/L Carbon Dioxide (21.0-32.0) mmol/L BUN (7.0-18.0) mg/dL Creatinine (0.6-1.0) mg/dL Est Cr Clr Drug Dosing mL/min Estimated GFR (MDRD) ml/min Glucose (74-106) mg/dL Calcium (8.5-10.1) mg/dL Troponin I (0.000-0.056) ng/mL C-Reactive Protein (0.00-0.90) mg/dL TSH 3rd Generation (0.36-3.74) uIU/mL HCG, Qual (NEG) Urine Opiates Screen POSITIVE (NEGATIVE) Ur Oxycodone Screen NEGATIVE (NEGATIVE) Urine Methadone Screen NEGATIVE (NEGATIVE) Ur Barbiturates Screen NEGATIVE (NEGATIVE) Ur Phencyclidine Scrn NEGATIVE (NEGATIVE) Ur Amphetamine Screen NEGATIVE (NEGATIVE) U Methamphetamines Scrn NEGATIVE (NEGATIVE) U Benzodiazepines Scrn NEGATIVE (NEGATIVE) U Cocaine Metab Screen NEGATIVE (NEGATIVE) U Marijuana (THC) Screen NEGATIVE (NEGATIVE) Meds: Medications Discontinued Medications Generic Name Dose Route Start Last Admin Trade Name Bryan PRN Reason Stop Dose Admin Acetaminophen 1,000 mg 07/02/19 17:12 07/02/19 17:28 Tylenol Extra Strength PO 07/02/19 17:13 1,000 mg ONETIME ONE Administration Amoxicillin/Clavulanate Potassium 1 tab 07/02/19 17:38 07/02/19 18:09 Augmentin 875 Mg/125 Mg PO 07/02/19 17:39 1 tab ONETIME ONE Administration Sodium Chloride 1,000 mls @ 1,000 mls/hr 07/02/19 14:47 07/02/19 14:50 Normal Saline IV 07/02/19 15:46 1,000 mls/hr .Bolus ONE Administration Sodium Chloride 1,000 mls @ 1,000 mls/hr 07/02/19 16:54 07/02/19 17:00 Normal Saline IV 07/02/19 17:53 1,000 mls/hr .Bolus ONE Administration Iopamidol 50 ml 07/02/19 15:12 07/02/19 15:15 Isovue Multipack-370 (76%) IVPUSH 07/02/19 15:13 50 ml ONETIME STA Administration Ketorolac Tromethamine 15 mg 07/02/19 17:12 07/02/19 17:29 Toradol IVPUSH 07/02/19 17:13 15 mg ONETIME ONE Administration Meclizine HCl 25 mg 07/02/19 17:37 07/02/19 18:09 Antivert PO 07/02/19 17:38 25 mg ONETIME ONE Administration Oxymetazoline HCl 1 ml 07/02/19 17:38 07/02/19 18:08 Afrin Original 0.05% Nasal [place] NASBOTH 07/02/19 17:39 1 spray ONETIME ONE Administration Pseudoephedrine HCl 30 mg 07/02/19 18:00 07/02/19 18:10 Sudogest PO 07/02/19 18:01 30 mg ONETIME ONE Administration Departure - Departure Time of Disposition: 18:44 Disposition: Home, Self-Care 01 Clinical Impression: Pre-syncope, Vertigo, Sinusitis - Discharge Information Prescriptions: Amoxicillin/Potassium Clav [Augmentin 875-125 Tablet] 1 each PO BID #20 tablet Meclizine HCl 25 mg PO Q6H PRN #10 tablet PRN Reason: Dizziness Referrals: Margy Lucas DO [Primary Care Provider] - Additional Instructions: You were in seen in the [facility] Emergency Department for evaluation of lightheadedness and dizziness. The time of your evaluation your believed to have ongoing sinusitis and have been prescribed Augmentin. For treatment of your dizziness you have been prescribed meclizine. Please read and follow all of the instructions below. Please follow up with your primary care physician tomorrow for repeat evaluation. When calling for follow-up care, please make the office aware that this follow-up is from your recent emergency room visit. If for any reason you are refused follow-up, please contact the [facility] Emergency Department at and asked to speak to the emergency department charge nurse. A copy of your pertinent labs and imaging is included below. CT head: 1. Pansinusitis. Findings are stable from previous exam. 2. No acute intracranial abnormality seen. EKG: SR at [address]-segment elevations or depressions, T-wave inversions or new LBBB. MA interval 122 msec, QTc 441 msec, no delta waves, epsilon waves, coved or saddle ST-segment changes in leads V1-3, preseptal or inferior lead Q-waves, biphasic P-waves, or T-wave inversions; no LVH. CXR: No acute cardiopulmonary disease process. No focal infiltrate, cardiomegaly , rib fractures, or mediastinal widening, lung markings extend to the periphery bilaterally and there are no deep sulci. Radiologist's read pending. WBC 11.98, HB 13.7, Na 138, K 4.2, Cr 1.1, troponin < 0.050, TSH 3.47. D-dimer 0.26 ESR 2, CRP 4.4 hCG negative Your care today was limited to identifying and treating emergent medical problems only. Many people have subtle differences in their test results that require follow up with their outpatient physician(s) to correctly determine if this represents a normal variation or concerning abnormality with respect to your specific health. The care given to you today was limited to identifying and treating emergent medical problems - you need to request a copy of all of your medical records from today's visit and follow up with your outpatient physician(s) to review both today's visit and your overall health. If you have any new symptoms or if you are at all concerned about your health please return immediately to the emergency department. Prescriptions: If you are uninsured or have financial difficulties with filling your prescription(s), you may consider using a free pharmacy discount service such as [employer] ([employer]) or [employer] ([employer]). These services allow you to search for a medication on your phone (or computer) and obtain a coupon that usually has a significant discount from the list solano at a pharmacy. Your physician as well as [facility] does not have a financial relationship with either of these services. You may also wish to speak with your physician to determine if lower cost prescriptions are possible. Obtaining primary care: 1. [facility] provides pediatrics (children), family medicine (children, adults, and some obstetrical care), and internal medicine (adults). Further specialty care is also available. Same day appointments are available. They may be contacted at [phone] and are open Monday through Monday 8 AM to 5 PM. The [facility] are located at [facility], [address] [place] [address] 22. 2. [facility] offers family medicine, internal medicine, [facility], and further specialty care. [facility] may be contacted at [phone]. [facility] is located at [facility]. [place] [address]. 3. If you have health insurance, please also contact your insurer for a list of accepting providers under your policy, you may contact these providers for further health care. Occupational health: Work related injuries may consider following up with [facility], . Occupational health services are located at [address] [place] [id number] and are open Monday through Monday from 7: 30 am to 5:00 pm. Obstetrical and Gynecological Care: [facility], , Monday through Monday 8 AM to 5 PM. [address] [place] [address]. Eyecare: If you have an eye injury you should follow up with your head of acquisitions or with [facility], at [phone] or [phone] , they are located at [facility] [place] [address]. [facility]. [address] [facility].[place], [place]. Ph. [phone] [facility] [place]. [address] [facility] [address], [place], [place]. Ph. [phone] Milton Florez DDS. 10 05/[address] [place] [address]. Ph. [phone] Jonnie Resendiz DDS. [address] [facility] [address] [place], [place]. Ph. [phone] Marc Avalos [facility] PC. [address] [facility] [address] [place], [place]. Ph. [phone] Criss Case [facility]. [address] [facility]. Ph. [phone] [facility]. [address] [place], [place]. Ph. [phone] [facility]. [address] [place] [address], [place], [place]. Ph. [phone] [facility] [address] [place] [phone]. Ph. [facility]. [address] [place] [address] [address] [place], [place]. Ph. [facility]. [address] [place], [place]. Ph. Syncope You have had a fainting (syncopal) spell. A fainting episode is a sudden and brief loss of consciousness. We [do not] believe your syncopal episode today was caused by a serious problem. You should []. [Please followup with your primary care physician within 1-2 days for reevaluation, review of your current medications, and further workup or treatment if necessary.] There are many causes for syncope and it can be difficult to fully diagnose each cause of syncope in the emergency department. Some of the most common causes of syncope are: Blood pressure pills and other medications that may lower blood pressure below normal. Sudden changes in posture (sudden standing). Standing too long. This can cause blood to pool in the legs. Seizure disorders. Low blood sugar (hypoglycemia) of diabetes. Bearing down to go to the bathroom. This can cause your blood pressure to rise suddenly. Your body compensates by making the blood pressure too low when you stop bearing down. Hardening of the arteries where the brain temporarily does not receive enough blood. Irregular heart beat and circulatory problems. Fear, emotional distress, injury, sight of blood, or illness. Seek immediate medical care if: You have another fainting episode or faint while lying or sitting down. DO NOT DRIVE YOURSELF. Call 911 if no other help is available. You have chest pain, are feeling sick to your stomach (nausea), vomiting or abdominal pain. You have an irregular heartbeat or one that is very fast (pulse over 120 beats per minute). You have a loss of feeling in some part of your body or lose movement in your arms or legs. You have difficulty with speech, confusion, severe weakness, or visual problems. You become sweaty and/or feel light headed. Meclizine (brand names: Dramamine) What is this drug used for? * It is used to help motion sickness. * It is used to treat dizziness (vertigo). * It may be given to you for other reasons. Talk with the doctor. What do I need to tell my doctor BEFORE I take this drug? * If you have an allergy to meclizine or any other part of this drug. * If you are allergic to any drugs like this one, any other drugs, foods, or other substances. Tell your doctor about the allergy and what signs you had, like rash; hives; itching; shortness of breath; wheezing; cough; swelling of face, lips, tongue, or throat; or any other signs. This drug may interact with other drugs or health problems. Tell your doctor and pharmacist about all of your drugs (prescription or OTC, natural products, vitamins) and health problems. You must check to make sure that it is safe for you to take this drug with all of your drugs and health problems. Do not start, stop, or change the dose of any drug without checking with your doctor. What are some things I need to know or do while I take this drug? * Tell all of your health care providers that you take this drug. This includes your doctors, nurses, pharmacists, and dentists. * Avoid driving and doing other tasks or actions that call for you to be alert until you see how this drug affects you. * If you are allergic to tartrazine, talk with your doctor. Some products have tartrazine. * Avoid drinking alcohol while taking this drug. * Talk with your doctor before you use other drugs and natural products that slow your actions. * If you are 65 or older, use this drug with care. You could have more side effects. * Do not give to a child younger than 12 years of age. * Tell your doctor if you are or plan on getting . You will need to talk about the benefits and risks of using this drug while you are . * Tell your doctor if you are breast-feeding. You will need to talk about any risks to your baby. What are some side effects that I need to call my doctor about right away? WARNING/CAUTION: Even though it may be rare, some people may have very bad and sometimes deadly side effects when taking a drug. Tell your doctor or get medical help right away if you have any of the following signs or symptoms that may be related to a very bad side effect: * Signs of an allergic reaction, like rash; hives; itching; red, swollen, blistered, or peeling skin with or without fever; wheezing; tightness in the chest or throat; trouble breathing or talking; unusual hoarseness; or swelling of the mouth, face, lips, tongue, or throat. * Not able to pass urine. * Feeling very tired or weak. What are some other side effects of this drug? All drugs may cause side effects. However, many people have no side effects or only have minor side effects. Call your doctor or get medical help if any of these side effects or any other side effects bother you or do not go away: * Feeling sleepy. * Dry mouth. * Headache. * Feeling tired or weak. * Throwing up. These are not all of the side effects that may occur. If you have questions about side effects, call your doctor. Call your doctor for medical advice about side effects. How is this drug best taken? Use this drug as ordered by your doctor. Read all information given to you. Follow all instructions closely. All products: * Take with or without food. * Take 1 hour before travel if using for motion sickness. Chewable tablet: * Chew or swallow tablet whole. What do I do if I miss a dose? * Take a missed dose as soon as you think about it. * If it is close to the time for your next dose, skip the missed dose and go back to your normal time. * Do not take 2 doses at the same time or extra doses. * Many times this drug is taken on an as needed basis. Do not take more often than told by the doctor. How do I store and/or throw out this drug? * Store at room temperature. * Protect from light. * Store in a dry place. Do not store in a bathroom. * Keep all drugs in a safe place. Keep all drugs out of the reach of children and pets. * Check with your pharmacist about how to throw out unused drugs. General drug facts * If your symptoms or health problems do not get better or if they become worse , call your doctor. * Do not share your drugs with others and do not take anyone else's drugs. * Keep a list of all your drugs (prescription, natural products, vitamins, OTC) with you. Give this list to your doctor. * Talk with the doctor before starting any new drug, including prescription or OTC, natural products, or vitamins. * Some drugs may have another patient information leaflet. If you have any questions about this drug, please talk with your doctor, nurse, pharmacist, or other health care provider. * If you think there has been an overdose, call your poison control center or get medical care right away. Be ready to tell or show what was taken, how much, and when it happened. Amoxicillin/Clavulanic Acid (Brand Name: Augmentin) Please take this medication as prescribed. Please take the medication for the full duration of the precription. If you feel you are experiencing a side effect, please call your physician or the emergency department. This is a penicillin type medicine used to treat a wide variety of bacterial infections. Amoxicillin/Clavulanic Acid Side Effects: Diarrhea, nausea, or vomiting may occur. If any of these effects persist or worsen, tell the doctor or pharmacist promptly. Taking this medication with food will help to reduce stomach upset. Tell the doctor right away if any of these rare but serious side effects occur: dark urine, persistent nausea/vomiting, severe stomach/abdominal pain, yellowing eyes/skin, easy bruising/bleeding, new signs of infection (such as fever, persistent sore throat), unusual tiredness. This medication may rarely cause a severe intestinal condition (Clostridium difficile-associated diarrhea) due to a type of resistant bacteria. This condition may occur during treatment or weeks to months after treatment has stopped. Do not use anti-diarrhea products or narcotic pain medications if you have any of the following symptoms because these products may make them worse. Tell the doctor right away if you develop: persistent diarrhea, abdominal or stomach pain/cramping, blood/mucus in your stool. Use of this medication for prolonged or repeated periods may result in oral thrush or a new yeast infection. Contact the doctor if you notice white patches in your mouth, a change in vaginal discharge or other new symptoms. A very serious allergic reaction to this drug is rare. However, get medical help right away if you notice any symptoms of a serious allergic reaction, including: rash, itching/swelling (especially of the face/tongue/throat), severe dizziness, trouble breathing. Amoxicillin can commonly cause a mild rash that is usually not serious. However, you may not be able to tell it apart from a rare rash that could be a sign of a severe allergic reaction. Therefore, get medical help right away if you develop any rash. Amoxicillin/Clavulanic Acid Precautions: Before taking this product, tell your doctor or pharmacist if you are allergic to amoxicillin or clavulanic acid; or to penicillin or cephalosporin antibiotics; or if you have any other allergies. This product may contain inactive ingredients, which can cause allergic reactions or other problems. Talk to your pharmacist for more details. Before using this medication, tell the doctor or pharmacist your medical history, especially of: liver disease (including liver problems caused by previous use of amoxicillin/clavulanic acid), kidney disease, a certain type of viral infection (infectious mononucleosis). This medication may contain aspartame. If you have phenylketonuria (PKU) or any other condition that requires you to limit/avoid aspartame (or phenylalanine ) in your diet, ask your doctor or pharmacist about using this medication safely. Before having surgery, tell your doctor or dentist about all the products you use (including prescription drugs, nonprescription drugs, and herbal products). This product may cause live bacterial vaccines (such as typhoid vaccine) not to work as well. Therefore, do not have any immunizations/vaccinations while using this medication without the consent of your doctor. During , this medication should be used only when clearly needed. Discuss the risks and benefits with your doctor. This medication passes into breast milk. Consult your doctor before breast- feeding. Amoxicillin/Clavulanic Acid Drug Interactions: Drug interactions may change how your medications work or increase your risk for serious side effects. This document does not contain all possible drug interactions. Keep a list of all the products you use (including prescription/ nonprescription drugs and herbal products) and share it with your doctor and pharmacist. Do not start, stop, or change the dosage of any medicines without your doctor's approval. Products that may interact with this drug include: methotrexate. Although most antibiotics are unlikely to affect hormonal control such as pills, patch, or ring, a few antibiotics (such as rifampin, rifabutin) can decrease their effectiveness. This could result in . If you use hormonal control, ask your doctor or pharmacist for more details. This medication may interfere with certain laboratory tests (including certain urine glucose tests), possibly causing false test results. Make sure laboratory personnel and all your doctors know you use this drug. Sepsis Event Note - Evaluation Sepsis Screening Result: No Definite Risk - Focused Exam Vital Signs: Vital Signs Temp Pulse Resp BP Pulse Ox 07/02/19 17:38 36.4 C 07/02/19 17:16 90 145/92 H 100 07/02/19 16:46 93 134/87 99 07/02/19 16:00 88 141/90 H 100 07/02/19 15:30 96 153/94 H 98 07/02/19 14:48 36.2 C 115 H 33 H 138/93 H 100 07/02/19 14:40 109 H 138/93 H 99 Date Exam was Performed: 07/02/19 Time Exam was Performed: 18:42 - My Orders Last 24 Hours: My Active Orders 07/02/19 14:47 Blood Glucose Check, Bedside [RC] ONETIME 07/02/19 15:07 EKG 12 Lead [EKG Documentation Completion] [RC] STAT 07/02/19 15:49 UA W/LISETTE RFLX IF INDICATED [URIN] Stat - Assessment/Plan Last 24 Hours: My Active Orders 07/02/19 14:47 Blood Glucose Check, Bedside [] ONETIME 07/02/19 15:07 EKG 12 Lead [EKG Documentation Completion] [RC] STAT 07/02/19 15:49 UA W/LISETTE RFLX IF INDICATED [URIN] Stat
[2019-07-02 19:22] VITALS: BP 134/78; PULSE 92
== END 2019-07-02 19:15 | disposition home or self-care (01) ==
LOC: MW.ED 14:40
DX: R55 Syncope and collapse (principal); J32.9 Chronic sinusitis, unspecified; R42 Dizziness and giddiness; J45.909 Unspecified asthma, uncomplicated; K21.9 Gastro-esophageal reflux disease without esophagitis; F90.9 Attention-deficit hyperactivity disorder, unspecified type; F41.9 Anxiety disorder, unspecified; F32.9 Major depressive disorder, single episode, unspecified; E66.9 Obesity, unspecified; Z79.899 Other long term (current) drug therapy; Z79.84 Long term (current) use of oral hypoglycemic drugs
CPT/HCPCS: 36415; 70470; 71045; 80048; 80305; 81003; 84443; 84484; 84703; 85025; 85379; 85652; 86140; 93005; 96361; 96374; 99285; A9270; J1885; J7030; Q9967; 99283